=== PATIENT | female | born 1955 | race African-American/Black ===

== ENCOUNTER 2017-08-10 10:10 | Outpatient (CLI) | payer OTHER ==
--- NOTE | 2017-08-10 13:29 | RAD ---
CHEST PA AND LATERAL: Date: 08/10/17 HISTORY: 62-year-old female with history of dyspnea. COMPARISON: 06/09/16. FINDINGS: Minimal cardiomegaly. Linear increased markings are noted in the left mid lung zone and right lower lung zone, which appears stable and chronic. No confluent pneumonia, overt edema, or pleural effusio n. IMPRESSION: Chronic lung changes bilaterally, stable. Stable cardiomegaly. No significant new process. POS: OFF
== END 2017-08-10 10:11 | disposition home or self-care (01) ==
LOC: RAD 10:10
PROVIDERS: ATTEND Internal Medicine Critical Care Medicine
DX: R06.00 Dyspnea, unspecified (principal); I51.7 Cardiomegaly
CPT/HCPCS: 71020

== ENCOUNTER 2018-01-02 22:17 | Emergency (ER) | payer OTHER ==
[2018-01-03] MEDS ORDERED: HYDROcodone/Acetaminophen 5/325 mg Tablet ONE (01:59)
--- NOTE | 2018-01-03 09:04 | RAD ---
FRONTAL CHEST WITH 2 VIEWS RIGHT RIBS: Date: 01/03/18 PROVIDED CLINICAL HISTORY: Chest pain status post injury. FINDINGS: Comparison made with chest radiographs performed 08/10/17. The cardiac silhouette remains enlarged, further magnified by supine portable technique. Patient body habitus limits evaluation. No focal consolidation evident. Evaluation for pleural fluid and pneumoth orax is limited due to the supine nature of the study. No evidence for a displaced right-sided rib fr acture. IMPRESSION: No evidence for an acute process with limitations as above. POS: SHAHRAM
== END 2018-01-03 04:30 | disposition home or self-care (01) ==
LOC: ERS 22:17
DX: S22.31XA Fracture of one rib, right side, initial encounter for closed fracture (principal); J45.909 Unspecified asthma, uncomplicated; V00.831A Fall from motorized mobility scooter, initial encounter
CPT/HCPCS: 94640; J7620

== ENCOUNTER 2018-02-24 13:02 | Outpatient (CLI) | payer OTHER ==
--- NOTE | 2018-02-24 14:59 | RAD ---
TWO VIEWS CHEST: COMPARISON: 08/10/17, 01/03/18. HISTORY: Dyspnea. FINDINGS: Atherosclerosis of the aorta. Heart is enlarged. Pulmonary vessels are prominent.. Patchy intersti tial opacities which are similar to the previous examination suggesting chronic change. Acute infilt rate is not appreciated. There is no pneumothorax or osseous abnormality. IMPRESSION: 1. Chronic change of lung parenchyma. No acute cardiopulmonary process. 2. Cardiomegaly without evidence of failure. POS: [facility]
== END 2018-02-24 13:03 | disposition home or self-care (01) ==
LOC: RAD 13:02
PROVIDERS: ATTEND Internal Medicine Critical Care Medicine
DX: R06.00 Dyspnea, unspecified (principal)
CPT/HCPCS: 71046

== ENCOUNTER 2018-03-18 07:33 | Emergency (ER) | payer OTHER ==
--- NOTE | 2018-03-18 09:20 | RAD ---
RIGHT ELBOW TWO VIEWS: History: Fall, right elbow injury. FINDINGS: Radiocapitellar alignment is maintained. No displaced fracture or fluid distention of the joint capsu le is apparent. Exam is limited due to persistent extension of the elbow and only two views. IMPRESSION: No significant abnormalities are demonstrated. POS: [facility]
--- NOTE | 2018-03-18 09:21 | RAD ---
RIGHT HUMERUS TWO VIEWS: History: Fall. Right arm injury. FINDINGS: Humerus is intact. Degenerative changes of the shoulder. No displaced fractures are evident. IMPRESSION: No acute osseous abnormalities are demonstrated. POS: [facility]
== END 2018-03-18 09:38 | disposition home or self-care (01) ==
LOC: ERS 07:33
DX: S50.02XA Contusion of left elbow, initial encounter (principal); J45.909 Unspecified asthma, uncomplicated; W19.XXXA Unspecified fall, initial encounter
CPT/HCPCS: 94640; J7620

== ENCOUNTER 2018-04-30 11:03 | Outpatient (CLI) | payer OTHER ==
--- NOTE | 2018-04-30 11:36 | RAD ---
CHEST TWO VIEWS: History: Dyspnea. Comparison: 04-08-18 FINDINGS: Cardiac silhouette remains enlarged. Pulmonary vasculature is slightly more engorged with bilateral p erihilar infiltrates and reticular nodular interstitial prominence. Mediastinum is midline. No lobar consolidation, pneumothorax, or pleural fluid. IMPRESSION: Cardiomegaly. Mild pulmonary vascular congestion. Stable radiographic appearance of the chest. POS: [facility]
== END 2018-04-30 11:04 | disposition home or self-care (01) ==
LOC: RAD 11:03
PROVIDERS: ATTEND Internal Medicine Critical Care Medicine
DX: R06.00 Dyspnea, unspecified (principal); I51.7 Cardiomegaly; R09.89 Other specified symptoms and signs involving the circulatory and respiratory systems
CPT/HCPCS: 71046

== ENCOUNTER 2018-06-30 14:33 | Inpatient (IN) | payer OTHER ==
[2018-06-30] MEDS ORDERED: Benzonatate 100 MG CAP PO PRN (15:05)
[2018-06-30 16:41] LABS: Hemoglobin 12.8 g/dL (12.0-16.0); Mean Corpuscular HGB CONC 31.4 g/dL (32.0-36.0); Mean Corpuscular Hemoglobin 30.9 pg (27.0-31.0); Mean Corpuscular Volume 98.3 fL (78.0-98.0); Mean Platelet Volume 9.7 fL (7.4-10.4); Platelet Count 138 thou/uL (130-400); RBC Distribution Width 12.6 % (11.5-14.5); Red Blood Cell (RBC) Count 4.14 mill/uL (4.20-5.40); White Blood Cell (WBC) Count 5.7 thou/uL (4.8-10.8)
[2018-06-30 16:55] LABS: Lymphocytes 9 % (21-51); MDiff Complete? YES; Monocytes 3 % (0-10); Neutrophil 88 % (42-75); PLT Morphology Comment Appears Adequate; RBC Morphology Normal
[2018-06-30 17:40] LABS: ALT (SGPT) 24 U/L (8-55); AST (SGOT) 19 U/L (5-34); Albumin 4.3 g/dL (3.4-4.8); Alkaline Phosphatase 95 U/L (40-150); Anion Gap 15 mmol/L (10-20); BUN (Urea Nitrogen) 13 mg/dL (9.8-20.1); Bilirubin, Total 0.9 mg/dL (0.2-1.2); Calc. Creatinine Clearance 131 mL/min (70-130); Calcium 8.2 mg/dL (7.8-10.44); Carbon Dioxide 36 mmol/L (23-31); Chloride 95 mmol/L (98-107); Estimated GFR-MDRD 60; Globulin 2.6 g/dL (2.4-3.5); Glucose 151 mg/dL (80-115); Potassium 3.3 mmol/L (3.5-5.1); Protein, Total 6.9 g/dL (6.0-8.3); Sodium 143 mmol/L (136-145)
[2018-06-30] MEDS: Amitriptyline HCl 100 MG TAB PO SCH (20:41)
[2018-06-30] MEDS: Doxycycline 100 MG CAP PO SCH (20:42)
[2018-06-30] MEDS: guaiFENesin ER 600 MG TAB PO SCH (20:42)
[2018-07-01] MEDS: Amitriptyline HCl 100 MG TAB PO SCH ×2 (08:27→19:43)
[2018-07-01] MEDS: Doxycycline 100 MG CAP PO SCH ×2 (08:27→19:44)
[2018-07-01] MEDS: guaiFENesin ER 600 MG TAB PO SCH ×2 (08:28→19:43)
[2018-07-01] MEDS: Furosemide 40 MG TAB PO SCH (08:28)
[2018-07-01] MEDS: Potassium Chloride 20 MEQ TAB PO SCH (08:28)
[2018-07-01 13:03] VITALS: BMI 58.3
[2018-07-01] MEDS ORDERED: Buprenorphine 8mg/Naloxone 2mg per 1 FILM SL PRN (15:58)
[2018-07-01] MEDS ORDERED: Furosemide 40 MG/4 ML VIAL SLOW IVP SCH (16:00)
--- NOTE | 2018-07-01 16:08 | PRG ---
DATE OF SERVICE: 07/01/2018 SUBJECTIVE: Rebeca Pretty says she is feeling better. She has not got out of bed. We need to get physical therapy moving around. PHYSICAL EXAMINATION: LUNGS: Remarkable for improved wheezes bilaterally. GENERAL APPEARANCE: She is in no distress and talking in longer sentences today. HEART: Regular rhythm. ABDOMEN: Soft. She is requesting her p.r.n. pain medicines. Her vital signs are stable. We will continue with current care and add in physical therapy in a skil led nursing evaluation.
[2018-07-01] MEDS: NALOXONE SL PRN (19:44)
[2018-07-01] MEDS: BUPRENORPHINE SL PRN (19:44)
--- NOTE | 2018-07-01 21:29 | HP ---
DATE OF SERVICE: 07/01/2018 HISTORY OF PRESENT ILLNESS: Rebeca Pretty presented to the office. She was seen last week for asthma and showed up today. The day of admission in the office saying that she needed to be in the hospital. She has a long history of asthma. She has a long history of obesity with deconditioning and is recently for the last few years, been getting around in a scooter. She had mastectomies for weight reduction, which helped considerably with her dyspnea on exertion, but she never has been successful at losing weight. She is 5 feet 6 inches, 361 pounds. She was being admitted for further care of her asthma. PAST MEDICAL HISTORY: 1. Remarkable for chronic asthma. 2. Diastolic heart failure, which is almost always been compensated. 3. Lower extremity edema, predominantly secondary to venous insufficiency in her obesity. 4. History of negative sleep study in the past. 5. History of carpal tunnel repairs. 6. History of herniorrhaphy and appendectomy. 7. History of a . She has never smoked, nondrinker, never uses drugs. ALLERGIES: She has no drug allergies. SOCIAL HISTORY: She is a retired teacher for [employer]. FAMILY HISTORY: Negative for lung disease in early age. REVIEW OF SYSTEMS: Ten-point review of systems is otherwise negative. PHYSICAL EXAMINATION: VITAL SIGNS: Blood pressure 120/80 in the office, heart rate 60, respiratory rate 16, oximetry is 92% on 2 liters. She is afebrile. HEENT: Pupils are equal. Sclerae are anicteric. NECK: Supple. LUNGS: Remarkable for very prolonged expiratory phase. She speaks in short sentences. HEART: Regular rate and rhythm. S1 and S2 are normal. ABDOMEN: Soft and nontender. EXTREMITIES: No clubbing, cyanosis, or edema. IMPRESSION: Asthma exacerbation refractory to outpatient therapy, increased her steroids last week and increased frequency of nebulizer treatments. She has failed to improve, so she will be admitted to the hospital. We will continue with home medications include ibuprofen. We will hold her triamterene/ hydrochlorothiazide, we will continue with her Elavil 100 mg twice a day, Soma 350 mg t.i.d. p.r.n., Tessalon Perles for cough, buprenorphine and naloxone 2 mg /0.5 mg every 12 hours p.r.n. pain, Symbicort will be held. She will continue nebulized treatments every 4 hours. She will take Lasix by mouth. I will hold off on giving her IV Lasix for the first day and continue with potassium replacement. She will receive IV steroids instead of prednisone and Mucinex. Hopefully, we will see some improvement in 3-4 days. Deconditioning is the biggest problem and I have asked her to consider placement in a skilled unit for a while for physical therapy. She says she is willing to consider this. JOSSY
[2018-07-02] MEDS: Doxycycline 100 MG CAP PO SCH ×2 (08:38→20:41)
[2018-07-02] MEDS: Amitriptyline HCl 100 MG TAB PO SCH ×2 (08:39→20:41)
[2018-07-02] MEDS: Potassium Chloride 20 MEQ TAB PO SCH (08:39)
[2018-07-02] MEDS: Furosemide 40 MG TAB PO SCH (08:39)
[2018-07-02] MEDS: guaiFENesin ER 600 MG TAB PO SCH ×2 (08:39→20:41)
[2018-07-02] MEDS: BUPRENORPHINE SL PRN ×2 (10:54→22:37)
[2018-07-02] MEDS: NALOXONE SL PRN ×2 (10:54→22:37)
[2018-07-02] MEDS ORDERED: Furosemide 40 MG/4 ML VIAL IVP ONE (12:28)
[2018-07-02] MEDS ORDERED: Potassium Chloride 20 MEQ TAB PO SCH (12:30)
--- NOTE | 2018-07-02 12:44 | PRG ---
DATE OF SERVICE: 07/02/2018 Ms. Pretty says she is feeling better. PHYSICAL EXAMINATION: VITAL SIGNS: She is afebrile, heart rate 70, respiratory rate 16, oximetry is 97, blood pressure 116 /67. Intake and output is negative 2570. LUNGS: Clear. CARDIOVASCULAR: Regular rhythm. ABDOMEN: Soft. IMPRESSION: 1. Status asthmaticus. 2. Stable diastolic heart failure. 3. Lower extremity edema secondary to her sedentary lifestyle venous compression and her massive obe sity. PLAN: Continue intermittent diuresis. Probably check lab again on Thursday. Continue with her asthma treatments and her steroids.
[2018-07-02] MEDS ORDERED: Furosemide 100 MG/10 ML VIAL SLOW IVP SCH (13:00)
--- NOTE | 2018-07-02 15:38 | PQF ---
CLINICAL DOCUMENTATION IMPROVEMENT CLARIFICATION FORM: ICD-10 Updated PLEASE DO AN ADDENDUM TO THE PROGRESS NOTE WITH ANY DOCUMENTATION UPDATES OR ADDITIONS AND CARRY THROUGH TO DC SUMMARY. THANK YOU. DATE: 07/02/18; 07/05/18; 07/07/18 ATTN: Dr. Vivas Please exercise your independent, professional judgment in responding to the clarification form. Clinical indicators are provided on the bottom of this form for your review Please check appropriate box(s): [ ] Acute Respiratory Failure: [ ] with Hypoxia [ ] with Hypercapnia [ ] Acute On Chronic Respiratory Failure: [ ] with Hypoxia [ ] with Hypercapnia [ ] Acute Respiratory Failure due to: [ ] Chronic Respiratory Failure only [ ] with Hypoxia [ ] with Hypercapnia [ ] Other diagnosis [ ] Unable to determine In addition, please specify: Present on Admission (POA): [ ] Yes [ ] No [ ] Unable to determine For continuity of documentation, please document condition throughout progress notes and discharge summary. Thank You. CLINICAL INDICATORS - SIGNS / SYMPTOMS / LABS H&P 06/30: BP 120/80, HR 60, RESP 16, OXIMETRY IS 92% ON 2 LITERS LUNGS: REMARKABLE FOR VERY PROLONGED EXPIRATORY PHASE. SHE SPEAKS IN SHORT SENTENCES NURSING VS 06/30: RESP 24, O2 SAT 84 ROOM AIR RISKS: H&P 06/30: HISTORY OF OBESITY WITH DECONDITIONING. DIASTOLIC HEART FAILURE. ASTHMA EXACERBATION REFRACTORY TO OUTPATIENT THERAPY. TREATMENT: ORDER 06/30: RESP: O2 TO KEEP SATS 92% CPOE 06/30: SOLU-MEDROL 20 MG IV Q 6 HRS CPOE 06/30: DUONEB Q 4HR Thank you, Rachel (This form is maintained as a part of the permanent medical record) 2014 [employer]. All Rights Reserved Rachel Paul RN, BSN [email or web address] Office: [phone] [facility]
[2018-07-03] MEDS: guaiFENesin ER 600 MG TAB PO SCH ×2 (08:04→20:06)
[2018-07-03] MEDS: Furosemide 40 MG TAB PO SCH (08:04)
[2018-07-03] MEDS: Amitriptyline HCl 100 MG TAB PO SCH ×2 (08:04→20:06)
[2018-07-03] MEDS: Doxycycline 100 MG CAP PO SCH ×2 (08:04→20:06)
[2018-07-03] MEDS: Potassium Chloride 20 MEQ TAB PO SCH (08:04)
--- NOTE | 2018-07-03 11:24 | PRG ---
DATE OF SERVICE: 07/03/2018 SUBJECTIVE: The patient states that she is breathing better. She had no acute complaints. PHYSICAL EXAMINATION: VITAL SIGNS: Temperature 97.1, pulse 71, respiration 20, O2 sat 100% on 2 liters nasal cannula, bloo d pressure 145/87. HEENT: Unremarkable. NECK: No JVD. CHEST: Distant, but clear breath sounds. CARDIOVASCULAR: S1, S2 regular. ABDOMEN: Soft. EXTREMITIES: No edema. ASSESSMENT: 1. Status asthmaticus, which is improved. 2. Stable diastolic cardiac dysfunction. PLAN: The patient is continuing her diuretics. She is also continuing low dose steroids and her neb ulization treatments. The goal would be for her to go home by Thursday.
[2018-07-03] MEDS: NALOXONE SL PRN (13:03)
[2018-07-03] MEDS: BUPRENORPHINE SL PRN (13:03)
[2018-07-04] MEDS: BUPRENORPHINE SL PRN ×3 (00:06→23:41)
[2018-07-04] MEDS: NALOXONE SL PRN ×3 (00:06→23:41)
[2018-07-04 07:33] LABS: Anion Gap 17 mmol/L (10-20); BUN (Urea Nitrogen) 22 mg/dL (9.8-20.1); Calc. Creatinine Clearance 166 mL/min (70-130); Calcium 8.6 mg/dL (7.8-10.44); Carbon Dioxide 36 mmol/L (23-31); Chloride 93 mmol/L (98-107); Estimated GFR-MDRD 76; Glucose 128 mg/dL (80-115); Potassium 3.6 mmol/L (3.5-5.1); Sodium 142 mmol/L (136-145)
[2018-07-04] MEDS: Potassium Chloride 20 MEQ TAB PO SCH (08:18)
[2018-07-04] MEDS: Doxycycline 100 MG CAP PO SCH ×2 (08:18→20:24)
[2018-07-04] MEDS: guaiFENesin ER 600 MG TAB PO SCH ×2 (08:19→20:24)
[2018-07-04] MEDS: Furosemide 40 MG TAB PO SCH (08:19)
[2018-07-04] MEDS: Amitriptyline HCl 100 MG TAB PO SCH ×2 (08:19→20:24)
--- NOTE | 2018-07-04 11:49 | PRG ---
DATE OF SERVICE: 07/04/2018 SUBJECTIVE: She is complaining that her right flank more swollen compared to her left. Her breathin g is about the same. OBJECTIVE: VITAL SIGNS: Temperature 98.4, pulse 60, respirations 20, O2 saturation 94% on 2 liters, blood press ure 107/71. HEENT: Unremarkable. NECK: No JVD. LUNGS: Clear. CARDIAC: S1 and S2 regular. ABDOMEN: Swollen. Skin fold on the right. This is not from Lovenox administration, rather this is from edema. EXTREMITIES: Edematous throughout. LABORATORY DATA: Sodium 140, potassium 3.6, chloride 93, CO2 36, BUN 22, creatinine 0.9, glucose 128 . ASSESSMENT: 1. Morbid obesity. 2. Status asthmaticus, which is improved. 3. Diastolic cardiac dysfunction. PLAN: The patient is requesting one dose of IV Lasix that will be given later this afternoon. She s hould be stable for discharge by tomorrow, Thursday.
[2018-07-04] MEDS: Furosemide 40 MG/4 ML VIAL SLOW IVP SCH (14:47)
[2018-07-05] MEDS: Doxycycline 100 MG CAP PO SCH ×2 (09:25→20:11)
[2018-07-05] MEDS: guaiFENesin ER 600 MG TAB PO SCH ×2 (09:25→20:11)
[2018-07-05] MEDS: Potassium Chloride 20 MEQ TAB PO SCH (09:26)
[2018-07-05] MEDS: Furosemide 40 MG TAB PO SCH (09:26)
[2018-07-05] MEDS: Amitriptyline HCl 100 MG TAB PO SCH ×2 (09:26→20:11)
[2018-07-05] MEDS: Furosemide 40 MG/4 ML VIAL SLOW IVP SCH (15:39)
--- NOTE | 2018-07-05 17:35 | PRG ---
DATE OF SERVICE: 07/05/2018 SUBJECTIVE: Rebeca Pretty says she is feeling better. She does not want to go into skilled for physi bubba therapy. She previously agreed to do that. This may have something to do with the fact that her son had another baby and she wants to get home and see the baby. OBJECTIVE: VITAL SIGNS: She is afebrile, heart rate 78, respiratory rate 18, oximetry is 95 on 2 liters, blood pressure 154/77. LUNGS: Clear. HEART: Regular rhythm. ABDOMEN: Soft and nontender. EXTREMITIES: Without clubbing, cyanosis, or edema. IMPRESSION: Status asthmaticus, clinically improved. Hopefully, we can discharge her tomorrow.
[2018-07-05] MEDS: NALOXONE SL PRN (22:29)
[2018-07-05] MEDS: BUPRENORPHINE SL PRN (22:29)
[2018-07-06] MEDS: guaiFENesin ER 600 MG TAB PO SCH ×2 (08:44→20:20)
[2018-07-06] MEDS: Doxycycline 100 MG CAP PO SCH ×2 (08:44→20:21)
[2018-07-06] MEDS: Amitriptyline HCl 100 MG TAB PO SCH ×2 (08:44→20:21)
[2018-07-06] MEDS: Potassium Chloride 20 MEQ TAB PO SCH (08:45)
[2018-07-06] MEDS: Furosemide 40 MG TAB PO SCH (08:45)
[2018-07-06] MEDS: Furosemide 40 MG/4 ML VIAL SLOW IVP SCH (15:02)
[2018-07-06 17:14] LABS: A/G Ratio 1.4 (0.7-1.7); Alpha 1 0.3 g/dL (0.0-0.4); Alpha 2 0.8 g/dL (0.4-1.0); Gamma 0.7 g/dL (0.4-1.8); Globulin, Total 2.8 g/dL (2.2-3.9); M-Spike Not Observed g/dL (Not Observed)
--- NOTE | 2018-07-06 17:55 | PRG ---
DATE OF SERVICE: 07/06/2018 Sukhwinder was tentatively scheduled for discharge today and then told me she go to rehab. I have had e floor helper evaluate her for placement in a skilled facility or rehabilitation facility and she deci ded she does not want to go this is financial issues. PHYSICAL EXAMINATION: VITAL SIGNS: She is afebrile, heart rate 76, respiratory rate 18, oximetry is 93%, blood pressure 14 9/81. LUNGS: Clear. HEART: Regular rhythm. ABDOMEN: Soft. IMPRESSION: 1. Status asthmaticus, clinically improved. 2. Obesity with deconditioning. 3. Lower extremity edema, predominantly secondary to obesity. We will reevaluate her in the morning for discharge. Hopefully, she will continue to improve. I hav e explained to her that her inactivity since she retired is her biggest enemy. 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 Since she has retired, she will quickly admit that she is just sitting all the time on her laptop or talking on her phone. I truly believe that deconditioning is a bigger factor than asthma.
[2018-07-06] MEDS: BUPRENORPHINE SL PRN (21:29)
[2018-07-06] MEDS: NALOXONE SL PRN (21:29)
[2018-07-07] MEDS ORDERED: predniSONE 20 MG TAB PO SCH (08:00)
[2018-07-07] MEDS: guaiFENesin ER 600 MG TAB PO SCH (08:15)
[2018-07-07] MEDS: Potassium Chloride 20 MEQ TAB PO SCH (08:15)
[2018-07-07] MEDS: Furosemide 40 MG TAB PO SCH (08:15)
[2018-07-07] MEDS: Amitriptyline HCl 100 MG TAB PO SCH (08:16)
[2018-07-07] MEDS: Doxycycline 100 MG CAP PO SCH (08:16)
[2018-07-07 08:25] VITALS: BP 145/75; TEMP 97.9
[2018-07-07] MEDS: BUPRENORPHINE SL PRN (10:40)
[2018-07-07] MEDS: NALOXONE SL PRN (10:40)
[2018-07-07] MEDS: Furosemide 40 MG/4 ML VIAL SLOW IVP SCH (16:43)
--- NOTE | 2018-07-08 01:42 | DIS ---
DISCHARGE DIAGNOSES: 1. Status asthmaticus. 2. Morbid obesity. 3. Status post breast reduction for weight loss. 4. 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 5. Acute on chronic respiratory failure with hypoxia. 6. Suspected sleep apnea. She has had a sleep study in the past that was negative, but when I round ed on her today, I did notice an apneic spell, try to get her to agree with a sleep study at a later date. Please see history and physical for details. Briefly, she presented to the office after failing outpatient management of her asthma. Deconditioni ng is a bigger factor than her asthma, but she was unable to speak in complete sentences when she arr ived to my office, so she subsequently was admitted. She is back near her baseline now. I suggested inpatient rehabilitation. She initially consented, then declined and consented and then declined ranta carlin, says she wants to go home. She will be discharged home on 40 of prednisone. She will take that until the end of the weekend and then go to 20 mg a day and is down to 20 mg a day until she sees me in 2 weeks. Other discharge medications will include Elavil 100 mg twice a day, Soma 350 t.i.d. p.r.n., I believe she has had an adequate course of antibiotics in the hospital, Lasix 40 mg a day p.o., guaifenesin 1200 mg twice a day, ipratropium and albuterol nebulized treatments every 4 hours, potassium 20 mEq a day with her Lasix. She will continue with her home pain meds. see her back in follow up in 2 week s. Her lungs are clear today on exam.
== END 2018-07-07 19:07 | disposition home or self-care (01) | DRG 202 ==
LOC: T4-A 14:33
PROVIDERS: ADMIT Internal Medicine Critical Care Medicine; ATTEND Internal Medicine Critical Care Medicine
DX: J45.902 Unspecified asthma with status asthmaticus (principal); J96.21 Acute and chronic respiratory failure with hypoxia; Z68.43 Body mass index [BMI] 50.0-59.9, adult; I50.32 Chronic diastolic (congestive) heart failure; E66.01 Morbid (severe) obesity due to excess calories
CPT/HCPCS: 36415; 80048; 80053; 83880; 84165; 85025; 85652; 94640; A4216; G8978-GP-CL; G8979-GP-CK; J1940; J2920; J7506; J7620

== ENCOUNTER 2018-08-02 13:26 | Outpatient (CLI) | payer OTHER ==
--- NOTE | 2018-08-02 15:11 | NM ---
NUCLEAR MEDICINE VQ SCAN: INDICATION: Pulmonary embolism without acute cor pulmonale. FINDINGS: The ventilation portion of the exam reveals homogeneous distribution with mild retention. Evaluation of the perfusion imaging reveals a mild, generalized heterogeneity without evidence of a moderate or large perfusion defect. IMPRESSION: 1. Low probability VQ scan for pulmonary embolus. 2. Mild retention of radiotracer which may relate to chronic obstructive pulmonary disease. Correla te clinically. POS: SHAHRAM
--- NOTE | 2018-08-02 15:12 | RAD ---
2 VIEW CHEST: Date: 08/02/18 COMPARISON: 04/30/18. INDICATION: Pulmonary embolism without cor pulmonale. Reference made to 04/30/18. FINDINGS: There remains prominence of the cardiac silhouette, with bilateral perihilar linear densities, again demonstrated. There is interstitial prominence of each lung. Prominence of the central pulmonary vasc ulature present. Chest is otherwise similar. IMPRESSION: 1. CHF. 2. Bilateral, persistent subsegmental atelectasis. There is a superimposed area of more confluent op acification of the lateral right lung base which could relate to an area of developing rounded atelec tasis versus pneumonia. Radiographic follow-up to resolution is recommended. CODE T. POS: SHAHRAM
== END 2018-08-02 13:27 | disposition home or self-care (01) ==
LOC: NM 13:26
PROVIDERS: ATTEND Internal Medicine Critical Care Medicine
DX: I26.99 Other pulmonary embolism without acute cor pulmonale (principal); I50.9 Heart failure, unspecified; J98.11 Atelectasis; R91.8 Other nonspecific abnormal finding of lung field
CPT/HCPCS: 71046; 78582; A9540; A9558

== ENCOUNTER 2019-10-20 21:31 | Inpatient (IN) | payer OTHER ==
[2019-10-20 22:14] LABS: Base Excess-Venous 11.9 mmol/L (-2.0 to 3.0); Bicarbonate (HCO3v) 42.3 mmol/L (22.0-28.0); CO2 Tension (PvCO2) 82.3 mmHg (40.0-50.0); Calcium, Ionized 1.16 mmol/L (See Comments:); Chloride 95 mmol/L (98-107); Hemoglobin - Calc 15.3 g/dL (12.0-16.0); Potassium 3.8 mmol/L (3.5-5.1); Sodium 143 mmol/L (138-145); T. Carbon Dioxide 44.8 mmol/L (22.0-28.0); vO2 Saturation-calc 26.9 % (60.0-85.0)
[2019-10-20 22:20] LABS: Hemoglobin 13.1 g/dL (12.0-16.0); Mean Corpuscular HGB CONC 32.2 g/dL (32.0-36.0); Mean Corpuscular Hemoglobin 30.8 pg (27.0-31.0); Mean Corpuscular Volume 95.7 fL (78.0-98.0); Mean Platelet Volume 8.9 fL (7.4-10.4); Platelet Count 146 thou/uL (130-400); RBC Distribution Width 11.6 % (11.5-14.5); Red Blood Cell (RBC) Count 4.25 mill/uL (4.20-5.40); White Blood Cell (WBC) Count 20.7 thou/uL (4.8-10.8)
[2019-10-20] MEDS ORDERED: Furosemide 40 MG/4 ML VIAL ONE (22:32)
[2019-10-20 22:38] LABS: Band 8 % (5-11); Lymphocytes 5 % (21-51); MDiff Complete? YES; Monocytes 4 % (0-10); Neutrophil 83 % (42-75); Platelet Morphology Comment Appears Adequate; RBC Morphology Normal
[2019-10-20] MEDS ORDERED: Albuterol Sulfate 2.5 mg/3 ml Neb ONE (22:41)
[2019-10-20 22:43] LABS: ALT (SGPT) 14 U/L (8-55); AST (SGOT) 24 U/L (5-34); Albumin 3.9 g/dL (3.4-4.8); Alkaline Phosphatase 82 U/L (40-110); Anion Gap 18 mmol/L (10-20); BUN (Urea Nitrogen) 20 mg/dL (9.8-20.1); Bilirubin, Total 1.2 mg/dL (0.2-1.2); Calc. Creatinine Clearance 0 mL/min (70-130); Carbon Dioxide 32 mmol/L (23-31); Chloride 95 mmol/L (98-107); Estimated GFR-MDRD 58; Glucose 114 mg/dL (80-115); Potassium 4.1 mmol/L (3.5-5.1); Protein, Total 6.9 g/dL (6.0-8.3); Sodium 141 mmol/L (136-145)
[2019-10-20 23:06] LABS: CKMB 3.9 ng/mL (0-6.6)
--- NOTE | 2019-10-20 23:20 | RAD ---
PORTABLE AP CHEST X-RAY 10/20/19 HISTORY: Cough, lethargy. COMPARISON: 08/02/18. FINDINGS: There is parenchymal opacity and consolidation at the right lung base as well as increased density an d air space opacities at the left lung base. Findings are worrisome for bibasilar pneumonia. The card iac borders are obscured due to the bibasilar opacities. Probable associated pleural effusion on the right. Vascular calcifications seen in the thoracic aorta. There is osteopenia. IMPRESSION: Bibasilar parenchymal opacities, worrisome for bibasilar pneumonia. Atypical pneumonia is a possibili ty. There is also probable small right pleural effusion. Follow-up to complete resolution is recommen ded. POS: SHAHRAM
[2019-10-21 00:17] LABS: Base Excess-Venous 7.5 mmol/L (-2.0 to 3.0); Bicarbonate (HCO3v) 37.3 mmol/L (22.0-28.0); CO2 Tension (PvCO2) 77.9 mmHg (40.0-50.0); Calcium, Ionized 1.08 mmol/L (See Comments:); Chloride 96 mmol/L (98-107); Hemoglobin - Calc 14.2 g/dL (12.0-16.0); Sodium 140 mmol/L (138-145); T. Carbon Dioxide 39.7 mmol/L (22.0-28.0); vO2 Saturation-calc 30.2 % (60.0-85.0)
[2019-10-21 00:34] LABS: Actual Bicarbonate (HCO3a) 32.3 mEq/L (22-28); Analyzer IN Cardio ER; CO2 Tension 53.9 mmHg (35.0-45.0); Carboxyhemoglobin (COHb) 1.2 gm% (0.0-3.0); Hemoglobin (Hb) 13.3 g/dL (12.0-16.0); O2 Tension (PaO2) 69.4 mmHg (> 80.0); Potassium - ABG Lab 3.52 mmol/L (3.70-5.30)
[2019-10-21 00:35] LABS: ALV-art Gradient 219.725 (0-20); Puncture Site LRA
[2019-10-21] MEDS ORDERED: Aspirin Chewable 81 MG TAB ONE ×2 (00:55→00:59)
--- NOTE | 2019-10-21 01:05 | PDOC.HHP ---
Hospitalist HPI - History of Present Illness somnolence, shortness of breath History of Present Illness: This is a 64 year old female who was brought in by family due to somnolence. The patient was noted to have an oxygen saturation of 70% and was placed on BIPAP 12/6. Her initial CO2 was 82.3 THe patient was then more arousable but not very verbal initially but after an hour I was able to obtain further history. The patient states that she has been feeling short of breath for the past few weeks. SHe says her short of breath was on exertion and has gotten progressive. The patient states she can't walk very far before she has to stop. SHe sometimes has shortness of breath while laying down but not always. She also has been having a fever of 101.5 for the past few weeks, pain in her left rib which is worst with inspiration and a productive cough for the past few weeks. Her PCP gave her azithromycin x 2 with no improvement. THe patient denies weight gain, states she has been taking lasix daily and has not increased her salt intake. She has chronic lower extremity edema, but it has not gotten worst. She says her urine output has been diminished as of late. ED Course: In the ED, labs were remarkable for WBC of 20.7, lactate of 2.4. EKG showed sinus tachycardia with T wave inversions in V2, troponin was 0.05. Chest X ray shows bibasilar pneumonia and possible small right pleural effusion. The patient received IV levaquin, and 40 mg IV lasix. She feels her breathing has improved some, but she is thirsty Hospitalist ROS - Review of Systems ROS unobtainable: due to mental status Constitutional: reports: fever. denies: chills Eyes: denies: pain, vision change Respiratory: reports: cough, shortness of breath, SOB with excertion. denies: hemoptysis Cardiovascular: denies: chest pain Gastrointestinal: denies: nausea, vomiting, abdominal pain, diarrhea, constipation Genitourinary: denies: dysuria, frequency, incontinence Musculoskeletal: denies: neck pain, shoulder pain Skin: denies: rash, lesions Neurological: denies: weakness, numbness Hospitalist History - Past Medical History Cardiac: reports: CHF (diastolic) Pulmonary: reports: asthma JOB HAND: reports: Carpal Tunnel Syndrome - Past Surgical History Other Surgical History: Carpal tunnel repairs Appendectomy C section Herniorrhaphy - Family History Other Family History: Unable to obtain - Social History Smoking Status: Never smoker Drugs: reports: none Other Social History: The patient is a . SHe lives alone. - Exam General Appearance: ill appearing General - other findings: on BIPAP, opens eyes to name but cannot respond much Eye: PERRL, anicteric sclera ENT: normocephalic atraumatic, no oropharyngeal lesions Neck: supple, symmetric, no JVD, no thyromegaly Heart: RRR, no murmur, no gallops, no rubs Respiratory: CTAB, no wheezes, no ronchi Respiratory - other findings: mild crackles bilaterally Gastrointestinal: soft, non-tender, non-distended, normal bowel sounds Gastrointestinal - other findings: obese, mild distension Extremities: no cyanosis, no clubbing, 1+ LE edema Extremities - other findings: mild tenderness in lower extremities Skin: normal turgor, no lesions, no rashes Neurological: no new deficit Psychiatric: normal affect, normal behavior, A&O x 3 Hospitalist Results - Labs Result Diagrams: 10/20/19 22:16 10/20/19 22:16 Lab results: WBC 20.7 thou/uL (4.8-10.8) H 10/20/19 22:16 Hgb 13.1 g/dL (12.0-16.0) 10/20/19 22:16 Hct 40.7 % (36.0-47.0) 10/20/19 22:16 MCV 95.7 fL (78.0-98.0) 10/20/19 22:16 Plt Count 146 thou/uL (130-400) 10/20/19 22:16 Band Neuts % (Manual) 8 % (5-11) 10/20/19 22:16 ABG pH 7.40 (7.35-7.45) 10/21/19 00:27 ABG pCO2 53.9 mmHg (35.0-45.0) H 10/21/19 00:27 ABG pO2 69.4 mmHg (> 80.0) 10/21/19 00:27 VBG pCO2 77.9 mmHg (40.0-50.0) H* 10/21/19 00:06 VBG pO2 22.7 mmHg (35.0-45.0) L 10/21/19 00:06 Sodium 141 mmol/L (136-145) 10/20/19 22:16 Potassium 4.1 mmol/L (3.5-5.1) 10/20/19 22:16 Chloride 95 mmol/L (98-107) L 10/20/19 22:16 Carbon Dioxide 32 mmol/L (23-31) H 10/20/19 22:16 BUN 20 mg/dL (9.8-20.1) 10/20/19 22:16 Creatinine 1.15 mg/dL (0.6-1.1) H 10/20/19 22:16 Glucose 114 mg/dL (80-115) 10/20/19 22:16 Lactic Acid 2.4 mmol/L (0.5-2.2) H 10/20/19 00:10 Calcium 9.0 mg/dL (7.8-10.44) 10/20/19 22:16 Total Bilirubin 1.2 mg/dL (0.2-1.2) 10/20/19 22:16 AST 24 U/L (5-34) 10/20/19 22:16 ALT 14 U/L (8-55) 10/20/19 22:16 Alkaline Phosphatase 82 U/L (40-110) 10/20/19 22:16 CK-MB (CK-2) 3.9 ng/mL (0-6.6) 10/20/19 22:16 Troponin I 0.054 ng/mL (< 0.028) H 10/20/19 22:16 B-Natriuretic Peptide 347.5 pg/mL (0-100) H 10/20/19 22:16 Serum Total Protein 6.9 g/dL (6.0-8.3) 10/20/19 22:16 Albumin 3.9 g/dL (3.4-4.8) 10/20/19 22:16 - EKG Interpretation EKG: sinus tachycardia with T wave inversion in V2, QT 473 Hospitalist H&P A/P - Plan Plan: Chest Xray: bibasilar parenchymal opacities, small right pleural effusion This is a 64 year old female with past medical history of asthma, diastolic heart failure, chronic lower extremity edema who presents with somnolence, improved with BIPAP #Acute hypoxic and hypercapneic respiratory failure secondary to pneumonia #Sepsis from pneumonia # Acute encephalopathy #Leukocytosis #Sinus tachycardia - vBG showing pH 7.2 initially with pCO2 of 80. After BIPAP, repeat ABG shows improvement with pH 7.4, PCO2 of 53, however respiratory rate was still elevated in the 20's. Chest X ray showing bibasilar pneumonia with small right pleural effusion. She is s/p IV levaquin and 40 mg IV lasix. - WBC is 20, lactate 2.7, will obtain blood cultures x 2, give 1L bolus and start IV fluids, switch to ceftriaxone and azithromycin. Repeat lactate - continue to trend troponin, check ECHO #Diastolic CHF #Moderate MR - will hold lasix for now since urine appears very dark - repeat ECHO Depression - hold amitritypline CKD stage II vs mild TALHA - creatinine 1.15, will monitor - give IV fluids Chronic back pain -continue soma DVT prophylaxis: heparin SC Code status: assume full code for now
[2019-10-21] MEDS ORDERED: Heparin 5,000 UNITS/ML VIAL SC SCH (01:30)
[2019-10-21] MEDS ORDERED: Sodium Chloride 0.9% 1,000 ML IV SCH (01:45)
[2019-10-21] MEDS ORDERED: Sodium Chloride 0.9% 500 ML IV SCH (01:49)
[2019-10-21] MEDS: Sodium Chloride 0.9% 1,000 ML IV SCH ×2 (02:03→14:05)
[2019-10-21] MEDS ORDERED: cefTRIAXone\\ROCEPHIN 1 GM VIAL ONE (02:07)
[2019-10-21] MEDS: cefTRIAXone\\ROCEPHIN 1 GM in Sodium Chloride 0.9% 100 ML IVPB SCH (02:18)
[2019-10-21] MEDS ORDERED: Azithromycin 500 MG VIAL ONE (02:51)
[2019-10-21] MEDS: Azithromycin 500 MG in Sodium Chloride 0.9% 250 ML 250 ML IVPB SCH (02:59)
[2019-10-21 03:34] LABS: Lactic Acid 1.3 mmol/L (0.5-2.2)
[2019-10-21 04:01] LABS: CKMB 6.3 ng/mL (0-6.6)
[2019-10-21 07:06] LABS: CKMB 5.6 ng/mL (0-6.6)
[2019-10-21] MEDS: Mometasone 100 MCG HFA INHALER INH SCH ×2 (08:04→19:22)
[2019-10-21 08:46] LABS: Lactic Acid 1.7 mmol/L (0.5-2.2)
[2019-10-21] MEDS ORDERED: Non-Formulary Item 1 EACH (Fluticasone/Umeclidin/Vilanter [Trelegy Ellipta 100-62.5-25] 1 IH SCH (09:00)
--- NOTE | 2019-10-21 09:19 | CT ---
CT CHEST WITHOUT CONTRAST: 10/21/2019 PROVIDED CLINICAL HISTORY: Altered mental status. Lethargy. Sepsis. Pneumonia. FINDINGS: The heart, pericardium and great vessel are suboptimally evaluated in the absence of IV contrast mate rial. Vascular calcification, including coronary calcium, is demonstrated. The heart appears enlarged . There are multifocal areas of consolidation involving the right middle lobe, the lingula and left gre ater than right lower lobes. The airway appears patent and of normal caliber. There is no pleural fluid or pneumothorax apparent. There is debris noted within the thoracic esophagus, which could reflect reflux or incomplete transit . The visualized portions of the upper abdomen demonstrate somewhat conspicuous gallbladder distention without pericholecystic inflammatory change evident. The osseous structures demonstrate no concerning lytic or blastic lesions. There is a chronic appearing burst fracture of T7. IMPRESSION: 1. Multifocal consolidation, compatible with pneumonia. 2. Atherosclerosis. 3. Debris within the thoracic esophagus, which may reflect reflux or incomplete transit. 4. Moderate gallbladder distention without overt pericholecystic inflammatory change. Consider right upper quadrant ultrasound, as indicated. POS: OFF
[2019-10-21 09:31] LABS: Hemoglobin 11.5 g/dL (12.0-16.0); Mean Corpuscular HGB CONC 32.4 g/dL (32.0-36.0); Mean Corpuscular Hemoglobin 30.9 pg (27.0-31.0); Mean Corpuscular Volume 95.3 fL (78.0-98.0); Mean Platelet Volume 8.9 fL (7.4-10.4); Platelet Count 122 thou/uL (130-400); RBC Distribution Width 11.9 % (11.5-14.5); Red Blood Cell (RBC) Count 3.73 mill/uL (4.20-5.40); White Blood Cell (WBC) Count 22.9 thou/uL (4.8-10.8)
[2019-10-21] MEDS: BUPRENORPHINE HCL SL PRN (09:32)
[2019-10-21] MEDS: NALOXONE HCL SL PRN (09:32)
[2019-10-21] MEDS: guaiFENesin ER 600 MG TAB PO SCH ×2 (09:34→20:18)
[2019-10-21] MEDS: Heparin 5,000 UNITS/ML VIAL SC SCH ×2 (09:34→15:34)
[2019-10-21 13:45] VITALS: BMI 42.0
--- NOTE | 2019-10-21 15:30 | CON ---
DATE OF CONSULTATION: 10/21/2019 This encompassed 70 minutes of time, of that time, greater than 50% was spent in direct the patient's care. HISTORY OF PRESENT ILLNESS: I have been asked to see this patient by the [facility] because she came in with increasing shortness of breath and bilateral pneumonia. The patient states the symptoms started last week. She thought she had a cold. She has been having intermittent fever up to 101.5. She has been taking prednisone at a dose of 20 mg a day. She was not taking antibiotics prior to admission. Last night, she stated in the ER was on BiPAP that was weaned off this morning. She says she feels better today. PAST MEDICAL HISTORY: 1. Asthma. 2. Congestive heart failure - diastolic. 3. Carpal tunnel syndrome. PAST SURGICAL HISTORY: 1. . 2. Herniorrhaphy. 3. Appendectomy. ALLERGIES: NONE. SOCIAL HISTORY: Nonsmoker. Does not consume alcohol. FAMILY MEDICAL HISTORY: Negative. REVIEW OF SYSTEMS: She has had intermittent fever, chills, cough, and congestion. Remainder of review of systems negative. PHYSICAL EXAMINATION: VITAL SIGNS: Temperature 99.5, pulse 92, blood pressure 107/68, and O2 saturation 94% on 3 L. GENERAL: She is awake, alert, pleasant, appears in no distress. HEENT: Pupils are reactive. Sclerae are anicteric. Oropharynx clear. NECK: No adenopathy or JVD. LUNGS: Scattered crackles, most prominent over the bases. CARDIAC: S1 and S2. Regular. ABDOMEN: Soft, obese, nontender, and nondistended. EXTREMITIES: No clubbing, cyanosis, or edema. LABORATORY DATA: Sodium 140, potassium 4, chloride 96, BUN 20, creatinine 1.1, and glucose 114. BNP 347. Troponin 0.08. PH of 7.40, pCO2 of 54, and pO2 of 69. White blood cell count 23, hematocrit 35.5, and platelet count 122. IMAGING DATA: CT was reviewed. She has bilateral infiltrates suggestive of pneumonia. ASSESSMENT: 1. Community-acquired pneumonia in a patient chronically on steroids. 2. Acute on chronic hypoxic respiratory failure. 3. Underlying asthma. 4. Underlying obstructive sleep apnea. PLAN: 1. Continue antibiotics as you are doing as the patient has responded. 2. Breathing treatments. 3. Low-flow oxygen. 4. Increase activity as tolerated. Job ID: [id number]
--- NOTE | 2019-10-21 16:50 | PDOC.HOSPP ---
- Subjective Encounter Date: 10/21/19 Encounter Time: 13:00 Subjective: breathing better, no sob, is sitting in chair in ER room 15 sees as outpt she came off cpap from 2016 after her breast reduction surgery uses home O2 on prn basis has taken flu shot for this year - Objective Vital Signs & Weight: Vital Signs (12 hours) Temp Pulse Resp BP Pulse Ox 10/21/19 16:03 89 127/75 10/21/19 15:28 92 16 10/21/19 14:43 94 L 10/21/19 13:28 99.5 F 92 24 H 107/68 94 L 10/21/19 11:30 95 24 H 93 L 10/21/19 08:05 95 20 92 L 10/21/19 08:04 95 18 92 L Weight Weight 260 lb 12.8 oz Result Diagrams: 10/21/19 09:20 10/20/19 22:16 Hospitalist ROS - Medication Medications: Active Medications Generic Name Dose Route Start Last Admin Trade Name Freq PRN Reason Stop Dose Admin Albuterol/Ipratropium 3 ml 10/21/19 07:00 10/21/19 15:28 Duoneb NEB 3 ml QID-RT KRYSTIN Administration Guaifenesin 1,200 mg 10/21/19 09:00 10/21/19 09:34 Mucinex PO 1,200 mg BID KRYSTIN Administration Heparin Sodium (Porcine) 5,000 units 10/21/19 09:00 10/21/19 15:34 Heparin SC 5,000 units TID KRYSTIN Administration Azithromycin 500 mg/ Sodium 250 mls @ 250 mls/hr 10/21/19 03:00 10/21/19 02: 59 Chloride IVPB 250 mls Q24HR KRYSTIN Administration Ceftriaxone Sodium 1 gm/ 100 mls @ 200 mls/hr 10/21/19 02:00 10/21/19 02:18 Sodium Chloride IVPB 100 mls Q24HR KRYSTIN Administration Sodium Chloride 1,000 mls @ 75 mls/hr 10/21/19 01:15 10/21/19 14:05 Normal Saline 0.9% IV 1,000 mls .[id number] KRYSTIN Administration Mometasone Furoate 1 puff 10/21/19 06:30 10/21/19 08:04 Asmanex Hfa 100 Mcg INH 1 puff BID-RT KRYSTIN Administration Buprenorphine Hcl/ 0 each 10/21/19 01:47 10/21/19 09:32 Naloxone Hcl 2-0.5 SL 1 each Mg Sl Q12HR PRN Administration Chronic Pain Sodium Chloride 10 ml 10/21/19 09:00 10/21/19 09:35 Flush - Normal Saline IVF 10 ml Q12HR KRYSTIN Administration - Exam General Appearance: awake alert Eye: PERRL, anicteric sclera ENT: no oropharyngeal lesions, moist mucosa Neck: supple, no JVD Heart: RRR, no murmur Respiratory: no wheezes, no rales, rhonchi Gastrointestinal: soft, non-tender, non-distended, normal bowel sounds Extremities: no cyanosis, no edema Neurological: cranial nerve grossly intact, no focal deficits Psychiatric: A&O x 3 Hosp A/P (1) PNA (pneumonia) Code(s): J18.9 - PNEUMONIA, UNSPECIFIED ORGANISM Status: Acute Qualifiers: Pneumonia type: due to unspecified organism (2) Acute respiratory failure with hypoxia Code(s): J96.01 - ACUTE RESPIRATORY FAILURE WITH HYPOXIA Status: Resolved (3) Obesity Code(s): E66.9 - OBESITY, UNSPECIFIED Status: Chronic Qualifiers: Obesity classification: adult class 3 (BMI >= 40) Body mass index: BMI 40.0 -44.9 (4) Sepsis Code(s): A41.9 - SEPSIS, UNSPECIFIED ORGANISM Status: Suspected Qualifiers: Sepsis type: sepsis due to unspecified organism - Plan is on ceftriaxone and zithromax, nebs give one dose 20mg prednisone today and then home dose of 5mg from am is off bipap appreciate 's help gentle iv hydration echo for lv function early mobilization to prevent deconditioning given bmi of 42 and chronic back pain
[2019-10-21] MEDS ORDERED: predniSONE 20 MG TAB PO SCH (17:00)
[2019-10-21] MEDS: Diltiazem 125 MG in Sodium Chloride 0.9% 100 ML IVPB SCH (19:46)
[2019-10-21] MEDS: Amitriptyline HCl 100 MG TAB PO SCH (20:18)
[2019-10-21] MEDS: tiZANidine HCl 4 MG TAB PO PRN (20:18)
[2019-10-21] MEDS: Enoxaparin Sodium 120 MG/0.8 ML SYRINGE SC SCH (20:22)
[2019-10-22] MEDS: cefTRIAXone\\ROCEPHIN 1 GM in Sodium Chloride 0.9% 100 ML IVPB SCH (01:20)
[2019-10-22] MEDS: Azithromycin 500 MG in Sodium Chloride 0.9% 250 ML 250 ML IVPB SCH (02:40)
[2019-10-22] MEDS: Sodium Chloride 0.9% 1,000 ML IV SCH ×2 (02:40→16:52)
[2019-10-22 05:22] LABS: #Lymphocytes 0.9 thou/uL (1.20-3.40); #Monocytes 0.5 thou/uL (0.11-0.59); #Neutrophils 12.2 thou/uL (1.40-6.50); %Eosinophils 0.1 % (0.0-10.0); %Lymphocytes 6.6 % (21.0-51.0); %Monocytes 3.8 % (0.0-10.0); %Neutrophils 89.6 % (42.0-75.0); Hemoglobin 11.5 g/dL (12.0-16.0); Mean Corpuscular Hemoglobin 31.7 pg (27.0-31.0); Mean Platelet Volume 9.1 fL (7.4-10.4); Platelet Count 121 thou/uL (130-400); RBC Distribution Width 11.8 % (11.5-14.5); Red Blood Cell (RBC) Count 3.61 mill/uL (4.20-5.40); White Blood Cell (WBC) Count 13.6 thou/uL (4.8-10.8)
[2019-10-22] MEDS: Mometasone 100 MCG HFA INHALER INH SCH ×2 (07:13→19:13)
[2019-10-22] MEDS: Diltiazem 125 MG in Sodium Chloride 0.9% 100 ML IVPB SCH (09:09)
[2019-10-22] MEDS: predniSONE 5 MG TAB PO SCH (09:59)
[2019-10-22] MEDS: guaiFENesin ER 600 MG TAB PO SCH ×2 (09:59→20:07)
[2019-10-22] MEDS: Enoxaparin Sodium 120 MG/0.8 ML SYRINGE SC SCH ×2 (10:00→20:07)
--- NOTE | 2019-10-22 12:46 | PRG ---
DATE OF SERVICE: 10/22/2019 SUBJECTIVE: She feels better. She is coughing up some purulent sputum. OBJECTIVE: VITAL SIGNS: Temperature 98.5, pulse 105, respirations 20, sat 95% on 2.5 L, and blood pressure 133/64. HEENT: Unremarkable. NECK: No adenopathy or JVD. CARDIAC: S1, S2. Irregularly irregular and tachycardic. LUNGS: Some crackles in the bases. ABDOMEN: Soft, obese, nontender. EXTREMITIES: No edema. ASSESSMENT: 1. Community-acquired pneumonia. 2. Atrial fibrillation. 3. Underlying asthma. 4. Underlying chronic obstructive pulmonary disease. PLAN: She seems to be responding appropriately to antibiotic therapy. We have seen a decrease in her white count from 22 to 13. She is growing out pneumococcus from her blood cultures which would normally be sensitive to ceftriaxone and usually to azithromycin. Job ID: [id number]
[2019-10-22] MEDS ORDERED: Furosemide 40 MG/4 ML VIAL SLOW IVP SCH (14:00)
[2019-10-22] MEDS ORDERED: Potassium Chloride 20 MEQ TAB PO SCH (14:00)
[2019-10-22] MEDS: Dronedarone HCl 400 MG TAB PO SCH (16:52)
[2019-10-22] MEDS: Amitriptyline HCl 100 MG TAB PO SCH (20:07)
--- NOTE | 2019-10-22 21:15 | CON ---
DATE OF CONSULTATION: 10/22/2019 REASON FOR CONSULTATION: Atrial fibrillation with a rapid ventricular response, pneumonia bilateral. HISTORY OF PRESENT ILLNESS: Ms. Pretty is a very pleasant 64-year-old woman. She has a history of fever and has been found to have bilateral pneumonia. During this hospitalization, the patient developed atrial fibrillation with a rapid ventricular response. She is not having any chest pain. She is having some difficulty breathing, but she is okay at rest. Overall, she is feeling somewhat better. She does not have any previous history of atrial fibrillation that she knows of. She does have a history of reactive airway disease, she sees Dr. Vivas. The patient is resting comfortably now. MEDICATIONS: 1. Amitriptyline. 2. Ibuprofen at home. 3. Furosemide 40 mg a day. 4. Potassium. 5. Prednisone. 6. Brovana inhaler. 7. Zanaflex. ALLERGIES: NONE KNOWN. SOCIAL HISTORY: No alcohol or tobacco. REVIEW OF SYSTEMS: CONSTITUTIONAL: Positive for cough with no weakness. VISION: No changes. HEARING: No changes. PULMONARY: Positive for cough and fever. CARDIAC: No chest pain or pressure. GASTROINTESTINAL: No nausea, vomiting, or diarrhea. SKIN: No rashes. NEUROLOGIC: No unilateral weakness or numbness. PSYCHIATRIC: No unusual depression or anxiety. PHYSICAL EXAMINATION: GENERAL: This is a pleasant 64-year-old woman. She is 5 feet 6 inches tall, 260 pounds. EYES: Sclerae nonicteric. MOUTH: Mucous membranes moist. NECK: Supple. No lymphadenopathy. LUNGS: Clear. I do not hear any wheezing, rales, or rhonchi. CARDIAC: She is tachycardic and irregular. ABDOMEN: Soft and nontender. EXTREMITIES: No clubbing or cyanosis. There is mild peripheral edema. LABORATORY STUDIES: Troponin 0.080. Potassium is 4.0 yesterday. BNP 347. Hemoglobin is still 11.5. WBC has gone from 20.7 to 13.6. Currently, EKG reveals atrial fibrillation with a rate of [address] changes. ASSESSMENT: 1. Atrial fibrillation with a rapid rate. 2. Bilateral pneumonia with microbiology growing out Strep pneumoniae. 3. History of reactive airway disease. 4. Diastolic heart failure with echocardiogram in 2018 showing normal left ventricular function with some estimate of diastolic dysfunction. PLAN: 1. She is on antibiotics. 2. Give her dose of Lasix and potassium. 3. Start Multaq. 4. She is fully anticoagulated with enoxaparin. We will follow with you. Job ID: [id number]
--- NOTE | 2019-10-22 21:53 | PDOC.HOSPP ---
- Subjective Encounter Date: 10/22/19 - Objective Vital Signs & Weight: Vital Signs (12 hours) Temp Pulse Resp BP Pulse Ox 10/22/19 19:16 95 10/22/19 19:15 94 L 10/22/19 19:13 92 L 10/22/19 19:00 98.1 F 100 20 129/76 96 10/22/19 15:19 98.4 F 113 H 18 153/78 H 98 10/22/19 14:55 118 H 16 10/22/19 11:15 98.5 F 105 H 20 133/64 95 10/22/19 10:47 108 H 16 Weight Weight 260 lb 12.8 oz I&O: 10/21/19 10/22/19 10/23/19 06:59 06:59 06:59 Intake Total 2550 2340 Output Total 1150 2350 Balance 1400 -10 Result Diagrams: 10/22/19 05:03 10/20/19 22:16 Hospitalist ROS - Medication Medications: Active Medications Generic Name Dose Route Start Last Admin Trade Name Shasta PRN Reason Stop Dose Admin Albuterol/Ipratropium 3 ml 10/21/19 07:00 10/22/19 19:15 Duoneb NEB 3 ml QID-RT KRYSTIN Administration Amitriptyline HCl 200 mg 10/21/19 21:00 10/22/19 20:07 Elavil PO 200 mg HS KRYSTIN Administration Dronedarone 400 mg 10/22/19 17:00 10/22/19 16:52 Multaq PO 400 mg BID-WM KRYSTIN Administration Enoxaparin Sodium 120 mg 10/21/19 21:00 10/22/19 20:07 Lovenox SC 120 mg 0900,2100 KRYSTIN Administration Guaifenesin 1,200 mg 10/21/19 09:00 10/22/19 20:07 Mucinex PO 1,200 mg BID KRYSTIN Administration Azithromycin 500 mg/ Sodium 250 mls @ 250 mls/hr 10/21/19 03:00 10/22/19 02: 40 Chloride IVPB 250 mls Q24HR KRYSTIN Administration Ceftriaxone Sodium 1 gm/ 100 mls @ 200 mls/hr 10/21/19 02:00 10/22/19 01:20 Sodium Chloride IVPB 100 mls Q24HR KRYSTIN Administration Sodium Chloride 1,000 mls @ 75 mls/hr 10/21/19 01:15 10/22/19 16:52 Normal Saline 0.9% IV 1,000 mls .[id number] KRYSTIN Administration Diltiazem HCl 125 mg/ Sodium 125 mls @ 7.5 mls/hr 10/21/19 19:00 10/22/19 09: 09 Chloride IVPB 125 mls INF KRYSTIN Administration Protocol 7.5 MG/HR Mometasone Furoate 1 puff 10/21/19 06:30 10/22/19 19:13 Asmanex Hfa 100 Mcg INH 1 puff BID-RT KRYSTIN Administration Buprenorphine Hcl/ 0 each 10/21/19 01:47 10/21/19 09:32 Naloxone Hcl 2-0.5 SL 1 each Mg Sl Q12HR PRN Administration Chronic Pain Prednisone 5 mg 10/22/19 08:00 10/22/19 09:59 Prednisone PO 5 mg QAM-WM KRYSTIN Administration Sodium Chloride 10 ml 10/21/19 09:00 10/22/19 20:08 Flush - Normal Saline IVF Not Given Q12HR KRYSTIN Tizanidine HCl 4 mg 10/21/19 16:52 10/21/19 20:18 Zanaflex PO 4 mg Q8H PRN Administration Muscle Spasm - Exam General Appearance: NAD, awake alert Heart: no murmur, irregular Respiratory: CTAB, no wheezes, no rales, no ronchi, normal chest expansion, no tachypnea, normal percussion Gastrointestinal: soft, non-tender, non-distended, normal bowel sounds, no palpable masses, no hepatomegaly, no splenomegaly, no bruit Extremities: no cyanosis, no clubbing, no edema Musculoskeletal: normal tone, normal strength, no muscle wasting Psychiatric: normal affect, normal behavior, A&O x 3 Hosp A/P (1) Acute respiratory failure with hypoxia Code(s): J96.01 - ACUTE RESPIRATORY FAILURE WITH HYPOXIA Status: Resolved (2) PNA (pneumonia) Code(s): J18.9 - PNEUMONIA, UNSPECIFIED ORGANISM Status: Acute Qualifiers: Pneumonia type: due to unspecified organism (3) Obesity Code(s): E66.9 - OBESITY, UNSPECIFIED Status: Chronic Qualifiers: Obesity classification: adult class 3 (BMI >= 40) Body mass index: BMI 40.0 -44.9 (4) Atrial fibrillation Code(s): I48.91 - UNSPECIFIED ATRIAL FIBRILLATION Status: Acute (5) Sepsis Code(s): A41.9 - SEPSIS, UNSPECIFIED ORGANISM Status: Suspected Qualifiers: Sepsis type: sepsis due to unspecified organism (6) Asthma Code(s): J45.909 - UNSPECIFIED ASTHMA, UNCOMPLICATED Status: Acute (7) Bacteremia due to Streptococcus pneumoniae Code(s): R78.81 - BACTEREMIA Status: Acute - Plan Doing better. Continue nebs, oxygen. Continue Rocephin, Azithromycin. Pulm following. Cards following. Starting Multaq. On anticoag.
[2019-10-23] MEDS: cefTRIAXone\\ROCEPHIN 1 GM in Sodium Chloride 0.9% 100 ML IVPB SCH (02:43)
[2019-10-23] MEDS: Azithromycin 500 MG in Sodium Chloride 0.9% 250 ML 250 ML IVPB SCH (02:47)
[2019-10-23] MEDS: tiZANidine HCl 4 MG TAB PO PRN ×2 (03:46→17:53)
[2019-10-23] MEDS: Sodium Chloride 0.9% 1,000 ML IV SCH ×2 (05:58→21:06)
[2019-10-23] MEDS: Mometasone 100 MCG HFA INHALER INH SCH ×2 (06:16→18:56)
[2019-10-23 06:45] LABS: #Eosinphils 0.1 thou/uL (0.0-0.7); #Lymphocytes 1.4 thou/uL (1.20-3.40); #Monocytes 0.6 thou/uL (0.11-0.59); #Neutrophils 5.6 thou/uL (1.40-6.50); %Basophils 0.4 % (0.0-1.0); %Eosinophils 1.8 % (0.0-10.0); %Lymphocytes 18.5 % (21.0-51.0); %Monocytes 7.2 % (0.0-10.0); %Neutrophils 72.2 % (42.0-75.0); Hemoglobin 10.2 g/dL (12.0-16.0); Mean Corpuscular HGB CONC 32.2 g/dL (32.0-36.0); Mean Corpuscular Hemoglobin 31.2 pg (27.0-31.0); Mean Corpuscular Volume 96.8 fL (78.0-98.0); Platelet Count 133 thou/uL (130-400); RBC Distribution Width 11.8 % (11.5-14.5); Red Blood Cell (RBC) Count 3.26 mill/uL (4.20-5.40); White Blood Cell (WBC) Count 7.7 thou/uL (4.8-10.8)
[2019-10-23 07:07] LABS: Anion Gap 12 mmol/L (10-20); BUN (Urea Nitrogen) 17 mg/dL (9.8-20.1); Calc. Creatinine Clearance 122 mL/min (70-130); Calcium 8.2 mg/dL (7.8-10.44); Carbon Dioxide 34 mmol/L (23-31); Chloride 101 mmol/L (98-107); Estimated GFR-MDRD 79; Glucose 100 mg/dL (80-115); Potassium 3.5 mmol/L (3.5-5.1); Sodium 143 mmol/L (136-145)
[2019-10-23] MEDS: predniSONE 5 MG TAB PO SCH (08:53)
[2019-10-23] MEDS: Dronedarone HCl 400 MG TAB PO SCH ×2 (08:54→17:51)
[2019-10-23] MEDS: guaiFENesin ER 600 MG TAB PO SCH ×2 (08:54→21:08)
[2019-10-23] MEDS: Enoxaparin Sodium 120 MG/0.8 ML SYRINGE SC SCH ×2 (08:54→21:09)
--- NOTE | 2019-10-23 13:40 | PRG ---
DATE OF SERVICE: 10/23/2019 SUBJECTIVE: Ms. Pretty feels better, had no acute complaints. OBJECTIVE: VITAL SIGNS: On examination, temperature 98.3, pulse 108, respiratory rate 25, O2 saturation 97% on 2 L, and blood pressure 123/67. HEENT: Unremarkable. NECK: No adenopathy or JVD. CARDIAC: S1 and S2. Irregularly irregular. LUNGS: Crackles at both bases. ABDOMEN: Morbidly obese, soft, and nontender. EXTREMITIES: No edema. LABORATORY DATA: White blood cell count 7.7, down from admission of 20.7; platelet count 133; and hematocrit 31.5. Sodium 143, potassium 3.5, chloride 101, CO2 of 34, BUN 17, creatinine 0.8, and glucose 100. IMAGING DATA: Echocardiogram from yesterday demonstrated no new acute findings. ASSESSMENT: 1. Bilateral pneumonia. 2. Atrial fibrillation. 3. Underlying asthma/chronic obstructive pulmonary disease. PLAN: She will continue antibiotics. She is now on low-dose oral prednisone. She seems to respond to therapy appropriately. Cardiology is managing her atrial fibrillation. I would think once that is under control, she can be discharged. Job ID: [id number]
--- NOTE | 2019-10-23 17:11 | PDOC.HOSPP ---
- Subjective Subjective: Feeling better. Breathing better. Was able to get up to the bathroom fairly well today. - Objective Vital Signs & Weight: Vital Signs (12 hours) Temp Pulse Resp BP Pulse Ox 10/23/19 15:25 98.6 F 114 H 18 121/82 95 10/23/19 14:46 98 16 10/23/19 11:09 98.3 F 108 H 25 H 123/67 97 10/23/19 10:13 106 H 16 10/23/19 07:40 98.7 F 99 20 121/72 96 10/23/19 06:16 64 12 10/23/19 06:13 93 L 10/23/19 06:12 64 12 Weight Weight 260 lb 12.8 oz I&O: 10/22/19 10/23/19 10/24/19 06:59 06:59 06:59 Intake Total 2550 3770 Output Total 1150 3750 Balance 1400 20 Result Diagrams: 10/23/19 06:29 10/23/19 06:29 Hospitalist ROS - Medication Medications: Active Medications Generic Name Dose Route Start Last Admin Trade Name Freq PRN Reason Stop Dose Admin Albuterol/Ipratropium 3 ml 10/21/19 07:00 10/23/19 14:46 Duoneb NEB 3 ml QID-RT KRYSTIN Administration Amitriptyline HCl 200 mg 10/21/19 21:00 10/22/19 20:07 Elavil PO 200 mg HS KRYSTIN Administration Dronedarone 400 mg 10/22/19 17:00 10/23/19 08:54 Multaq PO 400 mg BID-WM KRYSTIN Administration Enoxaparin Sodium 120 mg 10/21/19 21:00 10/23/19 08:54 Lovenox SC 120 mg 0900,2100 KRYSTIN Administration Guaifenesin 1,200 mg 10/21/19 09:00 10/23/19 08:54 Mucinex PO 1,200 mg BID KRYSTIN Administration Azithromycin 500 mg/ Sodium 250 mls @ 250 mls/hr 10/21/19 03:00 10/23/19 02: 47 Chloride IVPB 250 mls Q24HR KRYSTIN Administration Ceftriaxone Sodium 1 gm/ 100 mls @ 200 mls/hr 10/21/19 02:00 10/23/19 02:43 Sodium Chloride IVPB 100 mls Q24HR KRYSTIN Administration Sodium Chloride 1,000 mls @ 75 mls/hr 10/21/19 01:15 10/23/19 05:58 Normal Saline 0.9% IV 1,000 mls .[id number] KRYSTIN Administration Diltiazem HCl 125 mg/ Sodium 125 mls @ 7.5 mls/hr 10/21/19 19:00 10/22/19 09: 09 Chloride IVPB 125 mls INF KRYSTIN Administration Protocol 7.5 MG/HR Mometasone Furoate 1 puff 10/21/19 06:30 10/23/19 06:16 Asmanex Hfa 100 Mcg INH 1 puff BID-RT KRYSTIN Administration Buprenorphine Hcl/ 0 each 10/21/19 01:47 10/21/19 09:32 Naloxone Hcl 2-0.5 SL 1 each Mg Sl Q12HR PRN Administration Chronic Pain Prednisone 5 mg 10/22/19 08:00 10/23/19 08:53 Prednisone PO 5 mg QAM-WM KRYSTIN Administration Sodium Chloride 10 ml 10/21/19 09:00 10/23/19 08:54 Flush - Normal Saline IVF Not Given Q12HR KRYSTIN Tizanidine HCl 4 mg 10/21/19 16:52 10/23/19 03:46 Zanaflex PO 4 mg Q8H PRN Administration Muscle Spasm - Exam General Appearance: NAD, awake alert General - other findings: Obsee Heart: RRR, no murmur, no gallops, no rubs, normal peripheral pulses Respiratory: CTAB, no wheezes, no rales, no ronchi, normal chest expansion, no tachypnea, normal percussion Gastrointestinal: soft, non-tender, non-distended, normal bowel sounds, no palpable masses, no hepatomegaly, no splenomegaly, no bruit Extremities: no cyanosis, no clubbing, no edema Skin: normal turgor Musculoskeletal: normal tone Psychiatric: normal affect, normal behavior, A&O x 3 Hosp A/P (1) Acute respiratory failure with hypoxia Code(s): J96.01 - ACUTE RESPIRATORY FAILURE WITH HYPOXIA Status: Resolved (2) PNA (pneumonia) Code(s): J18.9 - PNEUMONIA, UNSPECIFIED ORGANISM Status: Acute Qualifiers: Pneumonia type: due to unspecified organism (3) Obesity Code(s): E66.9 - OBESITY, UNSPECIFIED Status: Chronic Qualifiers: Obesity classification: adult class 3 (BMI >= 40) Body mass index: BMI 40.0 -44.9 (4) Atrial fibrillation Code(s): I48.91 - UNSPECIFIED ATRIAL FIBRILLATION Status: Acute (5) Sepsis Code(s): A41.9 - SEPSIS, UNSPECIFIED ORGANISM Status: Suspected Qualifiers: Sepsis type: sepsis due to unspecified organism (6) Asthma Code(s): J45.909 - UNSPECIFIED ASTHMA, UNCOMPLICATED Status: Acute (7) Bacteremia due to Streptococcus pneumoniae Code(s): R78.81 - BACTEREMIA Status: Acute - Plan Doing better. Continue nebs, oxygen. Continue Rocephin, Azithromycin. Can likely change to po by tomorrow. Pulm following. Cards following. Starting Multaq. On anticoag. HR 98-108. Will discharge when ok with cards.
[2019-10-23] MEDS: Amitriptyline HCl 100 MG TAB PO SCH (21:08)
[2019-10-24] MEDS: cefTRIAXone\\ROCEPHIN 1 GM in Sodium Chloride 0.9% 100 ML IVPB SCH (02:18)
[2019-10-24] MEDS: Azithromycin 500 MG in Sodium Chloride 0.9% 250 ML 250 ML IVPB SCH (02:18)
[2019-10-24 04:28] LABS: Hemoglobin 11.2 g/dL (12.0-16.0); Platelet Count 151 thou/uL (130-400)
[2019-10-24] MEDS: Mometasone 100 MCG HFA INHALER INH SCH ×2 (06:39→19:00)
[2019-10-24] MEDS: predniSONE 5 MG TAB PO SCH (08:59)
[2019-10-24] MEDS: Enoxaparin Sodium 120 MG/0.8 ML SYRINGE SC SCH (08:59)
[2019-10-24] MEDS: Dronedarone HCl 400 MG TAB PO SCH ×2 (08:59→17:32)
[2019-10-24] MEDS: guaiFENesin ER 600 MG TAB PO SCH ×2 (08:59→21:01)
[2019-10-24] MEDS ORDERED: Potassium Chloride 20 MEQ TAB PO SCH (09:15)
[2019-10-24] MEDS: tiZANidine HCl 4 MG TAB PO PRN ×2 (09:15→21:04)
--- NOTE | 2019-10-24 09:37 | PRG ---
DATE OF SERVICE: 10/24/2019 SUBJECTIVE: Ms. Pretty is feeling better. When I walked in the room, she was on oxygen, but took the oxygen off. Her oxygen after being off for about 5 minutes was still 99% saturation. The patient has been getting up and around much. She has an IV pump. OBJECTIVE: VITAL SIGNS: Blood pressure 146/80, pulse 100 and irregular. LUNGS: Clear. CARDIAC: Irregularly irregular. ABDOMEN: Soft, nontender. EXTREMITIES: No edema. ASSESSMENT: 1. Atrial fibrillation, persistent, likely associated with her pneumonia. She did have some paroxysm of atrial fibrillation earlier during this hospitalization. In fact, on the she came out of fibrillation for a while and went back in. She also came in with sinus rhythm. 2. Pneumonia, improving. PLAN: 1. She is on Multaq 400 mg twice a day. 2. Cardizem. We will change to oral Cardizem 240 mg a day. 3. Change to Eliquis 5 mg twice a day. 4. We would not do cardioversion now. She is still going in and out of atrial fibrillation, so I would like to see us in the office in a few weeks. If she is still in fibrillation at that time, consideration for outpatient cardioversion. It is NOT indicated to cardiovert presently since she is still going in and out of fibrillation. Job ID: [id number]
--- NOTE | 2019-10-24 10:36 | PRG ---
DATE OF SERVICE: 10/24/2019 SUBJECTIVE: She feels better and wants to go home. OBJECTIVE: VITAL SIGNS: Her temperature is 97.6, pulse 105, respirations 20, O2 saturation 94% on 2 L, and blood pressure 146/80. HEENT: Unremarkable. NECK: No adenopathy, JVD, or bruits. LUNGS: Diminished breath sounds at both bases. CARDIAC: S1 and S2. Regular. ABDOMEN: Soft. EXTREMITIES: No edema. Cultures growing out pneumococcus, which is resistant to erythromycin. LABORATORY DATA: Hemoglobin 11.2, hematocrit 36.5, and platelet count 151. ASSESSMENT: 1. Pneumococcal pneumonia. 2. Acute hypoxic respiratory failure, which is better. 3. Underlying asthma/chronic obstructive pulmonary disease. PLAN: The patient will be changed to oral antibiotics-I will put her on Omnicef. She needs to continue this for about 10 days. From a Pulmonary aspect, she is probably stable for discharge, but I think there are Cardiology issues that will have to be addressed. Job ID: [id number]
[2019-10-24] MEDS: Cefdinir 300 MG CAP PO SCH (12:06)
--- NOTE | 2019-10-24 12:50 | PQF ---
ISSAC REILLY DAVID R MD [id number] CLINICAL DOCUMENTATION IMPROVEMENT CLARIFICATION FORM: ICD-10 Updated PLEASE DO AN ADDENDUM TO THE PROGRESS NOTE WITH ANY DOCUMENTATION UPDATES OR ADDITIONS AND CARRY THROUGH TO DC SUMMARY. THANK YOU. DATE: 10/24/19 ATTN: Dr. Garza Please exercise your independent, professional judgment in responding to the clarification form. Clinical indicators are provided on the bottom of this form for your review Please check appropriate box(s): [ ] Encephalopathy: Type: [ ] Acute [ ] Subacute [ ] Chronic Etiology: [ ] Metabolic [ ] Septic [ ] Unspecified [ ] in the setting of underlying dementia [ ] Other (please specify) [ ] Transient Alteration of Awareness [ ] Other diagnosis [ ] Unable to determine In addition, please specify: Present on Admission (POA): [ ] Yes [ ] No [ ] Unable to determine For continuity of documentation, please document condition throughout progress notes and discharge summary. Thank You. CLINICAL INDICATORS - SIGNS / SYMPTOMS / LABS / RESULTS AND LOCATION IN EMR Altered mental status / confusion-->10/21 H&P(Drew): " ROS unobtainable due to mental status; acute encephalopathy" Metabolic / electrolyte abnormality--> wbc 20.17, lactate 2.4 per 10/20 labs "Sepsis " per 10/21 H&P (Drew) RISK FACTORS / RESULTS AND LOCATION IN EMR Infectious process--> "Sepsis due to pneumonia" per 10/21 H&P (Drew) 10/20 Streptococcus Pneumoniae per blood culture-lab TREATMENTS / RESULTS AND LOCATION IN EMR IV antibiotics-->10/20 Levaquin 750 mg IV once--> Rocephin 1gm IV and Azithromycin 500mg IV daily 10/21-10/24--> Cefdir 600mg po daily 10/24 IV fluids--> 10/21 1.5 liter bolus NS then NS at 75 10/21 to 10/23 per orders (This form is maintained as a part of the permanent medical record) 2014 [employer]. All Rights Reserved Violet Aguirre RN, BSN, CCDS [email or web address] [phone] [facility]
--- NOTE | 2019-10-24 12:58 | PQF ---
ISSAC REILLY DAVID R MD [id number] CLINICAL DOCUMENTATION IMPROVEMENT CLARIFICATION FORM: ICD-10 Updated PLEASE DO AN ADDENDUM TO THE PROGRESS NOTE WITH ANY DOCUMENTATION UPDATES OR ADDITIONS AND CARRY THROUGH TO DC SUMMARY. THANK YOU. DATE: 10/24/19 ATTN: Dr. Garza Please exercise your independent, professional judgment in responding to the clarification form. Clinical indicators are provided on the bottom of this form for your review Please check appropriate box(s): Diastolic CHF: A. ACUITY [ ] Acute [ ] Acute on Chronic [ ] Chronic [ ] Other diagnosis [ ] Unable to determine In addition, please specify: Present on Admission (POA): [ ] Yes [ ] No [ ] Unable to determine For continuity of documentation, please document condition throughout progress notes and discharge summary. Thank You. CLINICAL INDICATORS - SIGNS / SYMPTOMS / LABS / RESULTS AND LOCATION IN EMR 10/21 H&P(Drew): SOB, chronic lower extremity edema 10/22 Adrianna: Diastolic HF with Echo 2018 Normal left ventricular function with osme estimate of disatolic dysfunction" 10/21 BNP 347.5 per lab 10/20 CXR Bibasilar pneumonia and possible small right pleural effusion RISKS FACTORS / RESULTS AND LOCATION IN EMR 10/20 H&P(Drew): " PMH: CHF(Diastolic, HTN, CKD stage II vs TALHA" TREATMENTS / RESULTS AND LOCATION IN EMR Cardiac monitoring / telemetry 10/21 orders IV Diuretics--> Lasix 40mg IV once 10/20 and 10/22 per orders Oxygen--> BIPAP to 2-3 L NC 10/21 per orders Cardiology Consult 10/21 orders (This form is maintained as a part of the permanent medical record) 2014 [employer]. All Rights Reserved Violet Aguirre RN, BSN, CCDS [email or web address] [phone] JOS[facility]
[2019-10-24] MEDS ORDERED: Hydrocortisone Valerate 0.2% Cream 60 gm Tube TOP SCH (21:00)
[2019-10-24] MEDS: Amitriptyline HCl 100 MG TAB PO SCH (21:01)
[2019-10-24] MEDS: BUPRENORPHINE HCL SL PRN (21:02)
[2019-10-24] MEDS: Apixaban 5 MG TAB PO SCH (21:02)
[2019-10-24] MEDS: Triamcinolone 0.1% Cream 30 GM TUBE TOP SCH (21:02)
[2019-10-24] MEDS: NALOXONE HCL SL PRN (21:02)
[2019-10-25] MEDS: Mometasone 100 MCG HFA INHALER INH SCH (07:36)
[2019-10-25] MEDS: Apixaban 5 MG TAB PO SCH (08:47)
[2019-10-25] MEDS: predniSONE 5 MG TAB PO SCH (08:47)
[2019-10-25] MEDS: guaiFENesin ER 600 MG TAB PO SCH (08:47)
[2019-10-25] MEDS: Dronedarone HCl 400 MG TAB PO SCH ×2 (08:47→17:26)
[2019-10-25] MEDS: Triamcinolone 0.1% Cream 30 GM TUBE TOP SCH (08:49)
[2019-10-25] MEDS: NALOXONE HCL SL PRN (09:49)
[2019-10-25] MEDS: BUPRENORPHINE HCL SL PRN (09:49)
[2019-10-25] MEDS: Cefdinir 300 MG CAP PO SCH (12:24)
[2019-10-25] MEDS: tiZANidine HCl 4 MG TAB PO PRN (12:27)
--- NOTE | 2019-10-25 13:29 | PRG ---
DATE OF SERVICE: 10/25/2019 SUBJECTIVE: Ms. Pretty is doing reasonably well. She wants to go home. OBJECTIVE: VITAL SIGNS: Temperature 97.5, pulse 99, respirations 18, O2 saturation 94% on 3L, and blood pressure 128/88. HEENT: Unremarkable. NECK: No adenopathy or JVD. CHEST: Clear. CARDIAC: S1 and S2, irregular. ABDOMEN: Soft. EXTREMITIES: No edema. ASSESSMENT: 1. Pneumococcal pneumonia. 2. Acute hypoxic respiratory failure. 3. Underlying chronic obstructive pulmonary disease. 4. Atrial fibrillation. PLAN: The patient will continue Omnicef and complete about 10 days total therapy. She is clear to go home from pulmonary standpoint. Dr. Marshall is available tomorrow if needed. Otherwise, I will see her again on if she is still here. Job ID: [id number]
--- NOTE | 2019-10-25 15:30 | PDOC.CPN ---
- Subjective Date: 10/25/19 Time: 15:35 Interval history: The pt seen and examined. No overnight events. No cardiac complaints. - Objective Allergies/Adverse Reactions: Allergies Allergy/AdvReac Type Severity Reaction Status Date / Time No Known Allergies Allergy Verified 06/30/18 15:05 Visit Medications: Current Medications Albuterol/Ipratropium (Duoneb) 3 ml NEB QID-RT [facility] Last Admin: 10/25/19 14:43 Dose: 3 ml Amitriptyline HCl (Elavil) 200 mg PO HS [facility] Last Admin: 10/24/19 21:01 Dose: 200 mg Apixaban (Eliquis) 5 mg PO BID [facility] Last Admin: 10/25/19 08:47 Dose: 5 mg Cefdinir (Omnicef) 600 mg PO 1200 [facility] Last Admin: 10/25/19 12:24 Dose: 600 mg Diltiazem HCl (Cardizem Cd) 240 mg PO DAILY [facility] Last Admin: 10/25/19 08:47 Dose: 240 mg Dronedarone (Multaq) 400 mg PO BID-WM [facility] Last Admin: 10/25/19 08:47 Dose: 400 mg Guaifenesin (Mucinex) 1,200 mg PO BID [facility] Last Admin: 10/25/19 08:47 Dose: 1,200 mg Mometasone Furoate (Asmanex Hfa 100 Mcg) 1 puff INH BID-RT [facility] Last Admin: 10/25/19 07:36 Dose: 1 puff Buprenorphine Hcl/Naloxone Hcl 2-0.5 Mg Sl 0 each SL Q12HR PRN PRN Reason: Chronic Pain Last Admin: 10/25/19 09:49 Dose: 1 each Prednisone (Prednisone) 5 mg PO QAM-WM [facility] Last Admin: 10/25/19 08:47 Dose: 5 mg Sodium Chloride (Flush - Normal Saline) 10 ml IVF Q12HR KRYSTIN Last Admin: 10/25/19 08:47 Dose: 10 ml Sodium Chloride (Flush - Normal Saline) 10 ml IVF PRN PRN PRN Reason: Saline Flush Tizanidine HCl (Zanaflex) 4 mg PO Q8H PRN PRN Reason: Muscle Spasm Last Admin: 10/25/19 12:27 Dose: 4 mg Triamcinolone Acetonide (Kenalog 0.1% Cream) 0 gm TOP BID [facility] Last Admin: 10/25/19 08:49 Dose: 1 applic Vital Signs & Weight: Vital Signs Temp Pulse Pulse Resp BP BP BP 10/25/19 14:43 98 16 10/25/19 11:53 97.5 F L 99 18 128/88 10/25/19 11:37 119 H 124/81 145/92 H 10/25/19 10:28 97 16 10/25/19 08:39 97.4 F L 110 H 18 136/71 10/25/19 07:35 101 H 16 10/25/19 04:00 98.5 F 104 H 20 128/75 Pulse Ox 10/25/19 14:43 94 L 10/25/19 11:53 94 L 10/25/19 11:37 10/25/19 10:28 94 L 10/25/19 08:39 94 L 10/25/19 07:35 92 L 10/25/19 04:00 92 L Weight 290 lb 14.4 oz - Physical Exam General: alert & oriented x3 HEENT: mucus membranes moist Neck: supple neck Lungs: decreased breath sounds, wheezes Neuro: cranial nerve 2-12 intact - Labs Result Diagrams: 10/24/19 03:51 10/24/19 03:51 Troponin/CKMB CK-MB (CK-2) 5.6 ng/mL (0-6.6) 10/21/19 06:14 Troponin I 0.073 ng/mL (< 0.028) H 10/21/19 06:14 - Telemetry Supraventricular conduction: atrial fibrillation - Assessment/Plan Assessment/Plan: 1. Prox Afib - Well controlled HR with Multaq, Diltiazem, and Eliquis. Not on bblocker due to hx of Asthma. Possible DCCV in 4-6 wks if she is still in Afib. 2. PNA - on ABX 3. Asthma with home O2 - stable with NC 4. Obese MAR reviewed * From Cardiac standpoint, ok to d/c home. The pt will f/u with Dr Rodas's office within 2-4wks. (Pls give Multaq and Eliquis 30-day free coupons.)
[2019-10-25 16:05] VITALS: BP 137/89; TEMP 98.2
--- NOTE | 2019-10-25 21:47 | DIS ---
DATE OF ADMISSION: 10/21/2019 DATE OF DISCHARGE: 10/25/2019 DISCHARGE DIAGNOSES: 1. Acute on chronic hypoxic respiratory failure. 2. Community-acquired pneumonia. 3. Asthma. 4. Obstructive sleep apnea. 5. Atrial fibrillation with RVR. 6. Acute metabolic encephalopathy. 7. Morbid obesity. 8. History of diastolic heart failure with no evidence of active disease process. HISTORY OF PRESENT ILLNESS: This patient is a 64-year-old female with a history of morbid obesity, asthma, who presented to the hospital with shortness of breath, severe hypoxia and acute metabolic encephalopathy, primarily manifest as lethargy. HOSPITAL COURSE: The patient initially had chest x-ray concerning for possible lower lobe pneumonias. She had a subsequent CT scan of the chest showing multifocal infiltrates consistent with pneumonia. There was also some finding of generalized atherosclerosis debris within the thoracic esophagus, possibly reflux and moderate gallbladder distention without evidence of overt inflammatory changes. She was seen in consultation by Pulmonary and Cardiology. She was started on antibiotic therapy and supplemental oxygen therapy along with nebulizer treatments. She subsequently developed atrial fibrillation with rapid ventricular response and was seen by Dr. Rodas. The patient was placed on Multaq and Eliquis and ultimately did achieve good rate control. With that, her symptoms also improved somewhat and she was feeling back to her baseline. She was able to get up and go to the bathroom on her own and she felt as though she was back to her baseline functional status. However, she was evaluated by Physical Therapy and was felt to likely benefit from ongoing therapy. Therefore, home health and home physical therapy were recommended. The patient also had an echocardiogram, which revealed atrial fibrillation. Left ventricular size was normal. EF was 50% to 55%. Left atrium was [id number]-[id number]-[id number] dilated without significant valvular disease noted. PHYSICAL EXAMINATION: VITAL SIGNS: On the day of discharge, temperature is 98.2, pulse 98 to 102, respirations 16 to 19, O2 saturation 92% on 3 L nasal cannula, and BP was 137/89. GENERAL: The patient is awake and alert, very pleasant, cooperative, eager to go home. HEART: Irregularly irregular without murmurs. LUNGS: Diminished but clear bilaterally with no wheezes or rales. ABDOMEN: Soft, nontender, and nondistended. Morbidly obese. EXTREMITIES: Had no edema. DISPOSITION: The patient is discharged home in stable condition. DISCHARGE MEDICATIONS: She is to be on: 1. Eliquis 5 mg b.i.d. 2. Omnicef 600 mg p.o. daily. 3. Diltiazem 240 mg daily. 4. Multaq 400 mg b.i.d. 5. Triamcinolone cream 0.1%. She will continue her usual home medications includin. Buprenorphine-naloxone 2/0.5 one tablet sublingual q.12 hours p.r.n. 2. Tessalon tablets p.r.n. 3. Amitriptyline 200 mg at bedtime. 4. Motrin 800 mg t.i.d. 5. DuoNeb p.r.n. 6. Albuterol HFA inhaler two puffs q.4 hours p.r.n. 7. Lasix 40 mg daily. 8. Trelegy Ellipta 100/62.5/25 one inhalation daily. 9. Potassium 20 mEq daily. 10. Prednisone 5 mg daily. 11. Guaifenesin 2 tablets b.i.d. 12. Brovana 15 mcg nebulized b.i.d. 13. Zanaflex p.r.n. ACTIVITY: As tolerated. DIET: She will be on a heart healthy diet. She is to follow up with Dr. Diaz in 7 days, Lloyd Sinha in 14 days, and Dr. Rodas next available appointment. She can return to the hospital at any time she feels the need to do so. TIME SPENT: Total time in discharge activity was 38 minutes. Job ID: [id number]
--- NOTE | 2019-10-26 23:46 | PQF ---
ISSAC REILLY DAVID R MD [id number] CLINICAL DOCUMENTATION CLARIFICATION FORM: POST DISCHARGE Addendum to original discharge summary date: ____ Late entry note date: __ DATE: 10/26/18 ATTN: Dakota Inman Please exercise your independent, professional judgment in responding to the clarification form. Clinical indicators are provided on the bottom of this form for your review Please check appropriate box(s) to clarify if the following diagnosis has been ruled in or ruled out: Sepsis [ x ] Ruled in diagnosis [ x ] Continue to treat [ ] Resolved [ ] Ruled out diagnosis [ ] Cannot rule out diagnosis [ ] Other diagnosis [ ] Unable to determine In addition, please specify: Present on Admission (POA): [ x] Yes [ ] No [ ] Unable to determine For continuity of documentation, please document condition throughout progress notes and discharge summary. Thank You. CLINICAL INDICATORS - SIGNS / SYMPTOMS / LABS Hospitalist H&P p1 10/21 Dr Russell brought in by family due to somnolence Hospitalist H&P p1 10/21 Dr Russell She sometimes has SOB while laying down but not always Hospitalist H&P p1 10/21 Dr Russell has been having a fever of 101.5 for the past weeks Hospitalist H&P p1 10/21 Dr Russell Labs remarkable for WBC of 20.7, Lactate of 2.4 RISK FACTORS Hospitalist H&P p1 10/21 64 year old female Hospitalist H&P p4 10/21 Sepsis from Pneumonia Hospitalist H&P p4 10/21 Acute hypoxic respiratory failure secondary to Pneumonia Consult p2 10/22 Bilateral Pneumonia with growing Strep Pneumoniae TREATMENTS JAN 04 IV Levaquin JAN 04 IV Lasix JAN 04 IV fluids bolus 2L Respiratory Panel 10/21 BiPap Hospitalist H&P p4 10/21 Repeat lactate (This form is maintained as a part of the permanent medical record) 2014 [employer], [email or web address] All Rights Reserved [email or web address] [not provided] MTDD
--- NOTE | 2019-10-28 10:55 | EKG ---
Test Reason : RHYTHM CHANGE Blood Pressure : / mmHG Vent. Rate : 125 BPM Atrial Rate : 120 BPM P-R Int : 000 ms QRS Dur : 100 ms QT Int : 326 ms P-R-T Axes : 000 -15 117 degrees QTc Int : 470 ms Atrial fibrillation with rapid ventricular response Cannot rule out Anterior infarct , age undetermined Abnormal ECG Confirmed by ISAIAH TRIVEDI ([id number]) on 10/28/2019 10:55:01 AM Referred By: Олег GARCIA Confirmed By:ISAIAH TRIVEDI
== END 2019-10-25 17:38 | disposition home or self-care (01) | DRG 871 ==
LOC: ERS 21:31 → ERHOLD 10-21 00:58 → 2NO 10-21 13:18
PROVIDERS: ADMIT Internal Medicine; ATTEND Internal Medicine
PROC: 5A09357 Assistance with Respiratory Ventilation, Less than 24 Consecutive Hours, Continuous Positive Airway Pressure (ICD-10-PCS; principal; 2019-10-21)
DX: A40.3 Sepsis due to Streptococcus pneumoniae (principal); J13 Pneumonia due to Streptococcus pneumoniae; J96.21 Acute and chronic respiratory failure with hypoxia; G93.41 Metabolic encephalopathy; Z68.42 Body mass index [BMI] 45.0-49.9, adult; I50.32 Chronic diastolic (congestive) heart failure; J44.0 Chronic obstructive pulmonary disease with (acute) lower respiratory infection; G47.33 Obstructive sleep apnea (adult) (pediatric); I48.91 Unspecified atrial fibrillation; E66.01 Morbid (severe) obesity due to excess calories; I34.0 Nonrheumatic mitral (valve) insufficiency; F32.9 Major depressive disorder, single episode, unspecified; G89.29 Other chronic pain; M54.9 Dorsalgia, unspecified; Z90.49 Acquired absence of other specified parts of digestive tract; Z28.21 Immunization not carried out because of patient refusal
CPT/HCPCS: 36415; 71045; 71250; 80048; 80053; 82330; 82435; 82553; 82565; 82803; 82805; 83605; 83880; 84132; 84295; 84484; 85014; 85018; 85025; 85027; 85049; 87040; 87077; 87149; 87186; 87804; 93005; 93010; 93306; 94640; 94644; 94660; 96365; 96366; 96375; J0456; J0696; J1644; J1650; J1940; J1956; J3490; J7050; J7512; J7611; J7620

== ENCOUNTER 2019-11-11 09:39 | Emergency (ER) | payer OTHER ==
[2019-11-11 11:22] LABS: Actual Bicarbonate (HCO3a) 31.8 mEq/L (22-28); Analyzer IN Cardio ER; CO2 Tension 51.5 mmHg (35.0-45.0); Calcium, Ionized 1.11 mmol/L (1.12-1.30); Carboxyhemoglobin (COHb) 0.6 gm% (0.0-3.0); Hemoglobin (Hb) 11.8 g/dL (12.0-16.0); Potassium - ABG Lab 3.39 mmol/L (3.70-5.30); pH, Arterial 7.41 (7.35-7.45)
[2019-11-11 11:27] LABS: O2 Tension (PaO2) 51.1 mmHg (> 80.0)
[2019-11-11 11:28] LABS: ALV-art Gradient 34.255 (0-20); Puncture Site LBA
[2019-11-11 11:35] LABS: #Eosinphils 0.1 thou/uL (0.0-0.7); #Lymphocytes 1.2 thou/uL (1.20-3.40); #Monocytes 0.3 thou/uL (0.11-0.59); %Basophils 0.3 % (0.0-1.0); %Eosinophils 3.6 % (0.0-10.0); %Lymphocytes 32.7 % (21.0-51.0); %Monocytes 8.1 % (0.0-10.0); %Neutrophils 55.2 % (42.0-75.0); Hemoglobin 11.5 g/dL (12.0-16.0); Mean Corpuscular HGB CONC 31.5 g/dL (32.0-36.0); Mean Corpuscular Hemoglobin 30.7 pg (27.0-31.0); Mean Corpuscular Volume 97.6 fL (78.0-98.0); Platelet Count 139 thou/uL (130-400); RBC Distribution Width 12.2 % (11.5-14.5); Red Blood Cell (RBC) Count 3.75 mill/uL (4.20-5.40); White Blood Cell (WBC) Count 3.6 thou/uL (4.8-10.8)
--- NOTE | 2019-11-11 11:49 | RAD ---
XR Chest 1 View Portable HISTORY: Dyspnea COMPARISON: 02/18/2019 FINDINGS: The heart size is stable. Significant interval improvement is seen in the areas of consolid ation noted on the previous study. No pneumothoraces or large effusions are identified.
[2019-11-11 11:57] LABS: ALT (SGPT) 11 U/L (8-55); AST (SGOT) 16 U/L (5-34); Albumin 3.9 g/dL (3.4-4.8); Alkaline Phosphatase 74 U/L (40-110); Anion Gap 12 mmol/L (10-20); BUN (Urea Nitrogen) 9 mg/dL (9.8-20.1); Bilirubin, Total 0.7 mg/dL (0.2-1.2); CK (CPK) 131 U/L (29-168); Calc. Creatinine Clearance 0 mL/min (70-130); Calcium 8.5 mg/dL (7.8-10.44); Carbon Dioxide 34 mmol/L (23-31); Chloride 98 mmol/L (98-107); Estimated GFR-MDRD 57; Globulin 2.2 g/dL (2.4-3.5); Glucose 97 mg/dL (80-115); Lipase 8 U/L (8-78); Potassium 3.6 mmol/L (3.5-5.1); Protein, Total 6.1 g/dL (6.0-8.3); Sodium 140 mmol/L (136-145)
[2019-11-11 12:15] LABS: CKMB 3.1 ng/mL (0-6.6)
== END 2019-11-11 13:19 | disposition home or self-care (01) ==
LOC: ERS 09:39
DX: M79.89 Other specified soft tissue disorders (principal); J45.909 Unspecified asthma, uncomplicated; Z79.51 Long term (current) use of inhaled steroids
CPT/HCPCS: 71045; 80053; 82550; 82553; 82805; 83690; 83880; 84484; 85025; 93005; 94760

== ENCOUNTER 2019-11-25 10:21 | Day surgery (SDC) | payer OTHER ==
[2019-11-24 09:53] VITALS: BMI 41.4
[~2019-11-25 10:21] MED LIST: Lidocaine 1% PF 5 ML VIAL ONE; PROPOFOL 200 MG/20 ML VIAL ONE
[2019-11-25] MEDS ORDERED: Potassium Chloride 20 MEQ TAB PO SCH (12:15)
--- NOTE | 2019-11-25 19:11 | OP ---
DATE OF PROCEDURE: 11/25/19 SURGEON: Zuhair Rodas M.D. PROCEDURE: Cardioversion. PROCEDURE IN DETAIL: The patient is brought to the Post Cath area in the fasting state. The patient had been on Eliquis. S he was sedated by anesthesia and given a 200 joule direct current energy dose synchronized which conv erted her to sinus rhythm. CONCLUSION: Successful cardioversion.
== END 2019-11-25 12:40 | disposition home or self-care (01) ==
LOC: CCL 10:21
PROVIDERS: ATTEND Internal Medicine Cardiovascular Disease
PROC: 5A2204Z Restoration of Cardiac Rhythm, Single (ICD-10-PCS; principal; 2019-11-25)
DX: I48.19 Other persistent atrial fibrillation (principal); G47.33 Obstructive sleep apnea (adult) (pediatric); J45.40 Moderate persistent asthma, uncomplicated; I50.32 Chronic diastolic (congestive) heart failure; E66.01 Morbid (severe) obesity due to excess calories; Z68.41 Body mass index [BMI] 40.0-44.9, adult; Z79.01 Long term (current) use of anticoagulants; Z79.52 Long term (current) use of systemic steroids; Z79.899 Other long term (current) drug therapy
CPT/HCPCS: 92960; J2001; J2704

== ENCOUNTER 2020-10-08 15:00 | Inpatient (IN) | payer OTHER ==
[2020-10-08] MEDS ORDERED: Acetaminophen 325 MG TAB ONE ×2 (16:25→19:44)
[2020-10-08] MEDS ORDERED: HYDROcodone/Acetaminophen 5/325 mg Tablet ONE ×2 (16:25→19:44)
[2020-10-08] MEDS ORDERED: Ketorolac Tromethamine 30 MG/ML VIAL ONE ×2 (16:25→19:44)
--- NOTE | 2020-10-08 17:43 | RAD ---
AP view of the pelvis INDICATION: Fall with pelvic pain COMPARISON: None. FINDINGS: Bones: No acute fracture or subluxation is evident. Bone mineralization appears within normal limits. Hips: Intact. SI joints and symphysis pubis: Normal appearing. Intrapelvic contents: Small phleboliths are seen within the lower left hemipelvis. IMPRESSION: No acute osseous abnormality.
--- NOTE | 2020-10-08 17:44 | RAD ---
Chest AP view INDICATION: Fall with chest pain COMPARISON: April 11, 2020 FINDINGS: Lungs: Chronic lung changes appear similar. Cardiac silhouette: Stable mild cardiomegaly Pulmonary vasculature: Normal Pleural spaces: No pleural effusion or pneumothorax is demonstrated. Upper abdomen: No abnormality seen. Osseous structures: No acute osseous abnormality. Additional findings: None. IMPRESSION: No acute cardiopulmonary abnormality.
--- NOTE | 2020-10-08 17:45 | RAD ---
XR Knee Lt 4 View STANDARD: 10/08/2020 5:10 PM CLINICAL INDICATION: Fall with left knee pain COMPARISON: January 04, 2009 FINDINGS: Bones: No acute fracture is demonstrated. Joints: There is worsening moderate to severe left knee osteoarthrosis. There is a 1.2 cm intra-artic ular body seen within the popliteal hiatus.. Soft Tissue: There is diffuse soft tissue swelling of the left thigh and left foreleg. IMPRESSION: Worsening moderate to severe left knee osteoarthrosis with an intra-articular body seen in the region of the popliteal hiatus. No acute fracture or subluxation demonstrated.
--- NOTE | 2020-10-08 17:47 | RAD ---
Exam:4 views right HISTORY: Injury. Fall COMPARISON: None FINDINGS: Diffuse bony mineralization. No joint effusion. No fracture or dislocation. Wamy-vb-dybiqwy e tricompartmental degenerative change. IMPRESSION: No post traumatic change.
[2020-10-08 19:46] LABS: #Eosinphils 0.1 thou/uL (0.0-0.7); #Lymphocytes 1.2 thou/uL (1.20-3.40); #Monocytes 0.9 thou/uL (0.11-0.59); %Basophils 0.1 % (0.0-1.0); %Eosinophils 0.8 % (0.0-10.0); %Lymphocytes 11.9 % (21.0-51.0); %Monocytes 8.7 % (0.0-10.0); %Neutrophils 78.4 % (42.0-75.0); Hemoglobin 11.8 g/dL (12.0-16.0); Mean Corpuscular HGB CONC 33.5 g/dL (32.0-36.0); Mean Corpuscular Hemoglobin 31.3 pg (27.0-31.0); Mean Corpuscular Volume 93.4 fL (78.0-98.0); Mean Platelet Volume 8.5 fL (7.4-10.4); Platelet Count 139 thou/uL (130-400); RBC Distribution Width 12.4 % (11.5-14.5); Red Blood Cell (RBC) Count 3.78 mill/uL (4.20-5.40); White Blood Cell (WBC) Count 10.1 thou/uL (4.8-10.8)
[2020-10-08 20:14] LABS: ALT (SGPT) 44 U/L (8-55); AST (SGOT) 99 U/L (5-34); Albumin 3.7 g/dL (3.4-4.8); Alkaline Phosphatase 82 U/L (40-110); Anion Gap 21 mmol/L (10-20); BUN (Urea Nitrogen) 59 mg/dL (9.8-20.1); Bilirubin, Total 1.4 mg/dL (0.2-1.2); CK (CPK) 1682 U/L (29-168); Calc. Creatinine Clearance 0 mL/min (70-130); Calcium 7.9 mg/dL (7.8-10.44); Carbon Dioxide 31 mmol/L (23-31); Chloride 93 mmol/L (98-107); Globulin 2.2 g/dL (2.4-3.5); Glucose 114 mg/dL (80-115); Potassium 3.6 mmol/L (3.5-5.1); Protein, Total 5.9 g/dL (6.0-8.3); Sodium 141 mmol/L (136-145)
[2020-10-08 20:34] LABS: CKMB 6.3 ng/mL (0-6.6)
[2020-10-08] MEDS ORDERED: Aspirin Chewable 81 MG TAB ONE (20:40)
[2020-10-08 22:56] LABS: Bacteria/HPF 3+ HPF (None Seen); Bilirubin Negative (Negative); Blood, Urine 1+ (Negative); Clarity Turbid (Clear); Glucose, Urine (Dipstick) Normal (Negative); Ketone, Urine Negative (Negative); Leukocyte 250 Leu/uL (Negative); Nitrite Negative (Negative); Protein, Urine (Dipstick) Negative (Neg-Trace); RBC/HPF 0-3 HPF (0-3); Renal Epithelial 0-3 HPF (None Seen); Specific Gravity, Urine 1.011 (1.002-1.036); Urobilinogen Normal mg/dL (Less than 2); pH, Urine 5.5 (5.0-9.0)
[2020-10-09] MEDS ORDERED: cefTRIAXone\\ROCEPHIN 1 GM VIAL ONE ×2 (00:20→05:32)
[2020-10-09 01:30] LABS: Troponin I 0.207 ng/mL (< 0.028)
[2020-10-09] MEDS ORDERED: Promethazine HCl 12.5 MG in Sodium Chloride 0.9% 50 ML IVPB PRN (02:34)
[2020-10-09] MEDS ORDERED: Ondansetron PF 4 MG/2 ML Vial IVP PRN (02:34)
[2020-10-09] MEDS ORDERED: hydrALAZINE 20 MG/ML VIAL SLOW IVP PRN (02:34)
[2020-10-09] MEDS ORDERED: cloNIDine 0.1 MG TAB PO PRN (02:34)
[2020-10-09] MEDS ORDERED: Labetalol HCl 100 MG/20 ML VIAL SLOW IVP PRN (02:34)
[2020-10-09] MEDS ORDERED: Acetaminophen 325 MG TAB PO PRN (02:34)
--- NOTE | 2020-10-09 02:38 | PDOC.HHP ---
Hospitalist HPI - History of Present Illness Fall History of Present Illness: Patient is a 65 year old female with PMH COPD, afib, asthma who presents to ED after falling Thursday using her walker doing housework, found by [employer] members. Complained of LLE pain. She struck her knees, fell forward onto her w alker. She has fallen several times before, and was on ground for as long as 2 days. Placed on nasal cannula by EMS for O2sat of 92%. she denies LOC but seems a bit altered/confused during conversation. unsure of baseline. Labs significant for Cr of 3.57, Tbili 1.4, AST 99, CK ~1700, Tni 0.2, UA positive for UTI. XR pelvis without acute findings. XR knees with OA but no fractures or subluxations. CXR clear. Patient has 2+ pedal edema but there is a superimposed erythematous rash on both shins, L>R. Patient to be admitted for further workup and care. Hospitalist ROS - Review of Systems Constitutional: reports: weakness, malaise. denies: fever, chills, sweats, other Eyes: denies: pain, vision change, conjunctivae inflammation, eyelid inflammation, redness, other ENT: denies: ear pain, ear discharge, nose pain, nose discharge, nose congestion, mouth pain, mouth swelling, throat pain, throat swelling, other Respiratory: denies: cough, dry, shortness of breath, hemoptysis, SOB with excertion, pleuritic pain, sputum, wheezing, other Cardiovascular: denies: chest pain, palpitations, orthopnea, paroxysmal noc. dyspnea, edema, light headedness, other Gastrointestinal: denies: nausea, vomiting, abdominal pain, diarrhea, constipation, melena, hematochezia, other Genitourinary: denies: dysuria, frequency, incontinence, hematuria, retention, other Musculoskeletal: reports: leg pain Skin: reports: rash. denies: lesions, heriberto, bruising, other Neurological: denies: weakness, numbness, incoordination, change in speech, confusion, seizures, other All other systems reviewed; all pertinent +/- noted in HPI/Subj - Medication Medications: furosemide oral tablet : Strength - 40 mg : ORAL Patient Dose: 1 tab(s) Oral once a day. buprenorphine-naloxone film : Strength - 2 mg-0.5 mg : SUBLINGUAL Patient Dose: 1 tab(s) Oral 2 times a day. benzonatate capsule : Strength - 100 mg : ORAL Patient Dose: 2 tab(s) Oral every 4 hours prn. ibuprofen tablet : Strength - 800 mg : ORAL Patient Dose: 1 tab(s) Oral 3 times a day. amitriptyline oral tablet : Strength - 100 mg : ORAL Patient Dose: 1 tab(s) Oral 2 times a day. ProAir HFA HFA aerosol inhaler : Strength - 90 mcg : INHALATION Patient Dose: Unknown. potassium chloride oral packet : Strength - 20 mEq : ORAL Patient Dose: 1 tab(s) Oral once a day. Trelegy Ellipta blister with device : Strength - 100 mcg-62.5 mcg-25 mcg/actuation : INHALATION Patient Dose: 1 puff(s) once a day. dilTIAZem oral capsule,extended release 24hr : Strength - 240 mg : ORAL Patient Dose: 1 tab(s) Oral once a day. Eliquis tablet : Strength - 5 mg : ORAL Patient Dose: 5 mg Oral 2 times a day. Multaq tablet : Strength - 400 mg : ORAL Patient Dose: 400 mg Oral 2 times a day. Brovana solution for nebulization : Strength - 15 mcg/2 mL : INHALATION Patient Dose: 1 puff(s) once a day. predniSONE TABLET : Strength - 20 mg : ORAL Patient Dose: 3 Oral See Notes.t 3 tabs po today and then 40mg a day for the next four days. Hospitalist History - Past Medical History Other Medical History: COPD, afib, asthma - Past Surgical History Other Surgical History: carpal tunnel bilateral , hernia repair, Surgical history of appendectomy, Surgical history of section, partially fused left wrist surgery. - Family History Family History: reports: no pertinent history - Social History Smoking Status: Never smoker Alcohol: reports: None Drugs: reports: none - Exam General Appearance: NAD, awake alert Eye: PERRL, anicteric sclera ENT: normocephalic atraumatic, no oropharyngeal lesions, moist mucosa Neck: supple, symmetric, no JVD, no thyromegaly, no lymphadenopathy, no carotid bruit Heart: RRR, no murmur, no gallops, no rubs, normal peripheral pulses Respiratory: CTAB, no wheezes, no rales, no ronchi, normal chest expansion, no tachypnea, normal percussion Gastrointestinal: soft, non-tender, non-distended, normal bowel sounds, no palpable masses, no hepatomegaly, no splenomegaly, no bruit Extremities: no cyanosis, no clubbing, 2+ LE edema Extremities - other findings: erythema of both legs, L>R, no focus of infection, no purulence/induration Skin: normal turgor, no lesions Skin - other findings: bilateral leg rash Neurological: cranial nerve grossly intact, normal sensation to touch, no weakness, no focal deficits, no new deficit Musculoskeletal: normal tone, normal strength, no muscle wasting Psychiatric: normal affect, normal behavior, A&O x 3 Hospitalist Results - Labs Result Diagrams: 10/08/20 19:35 10/08/20 19:35 Lab results: WBC 10.1 thou/uL (4.8-10.8) 10/08/20 19:35 Hgb 11.8 g/dL (12.0-16.0) L 10/08/20 19:35 Hct 35.3 % (36.0-47.0) L 10/08/20 19:35 MCV 93.4 fL (78.0-98.0) 10/08/20 19:35 Plt Count 139 thou/uL (130-400) 10/08/20 19:35 Neutrophils % 78.4 % (42.0-75.0) H 10/08/20 19:35 Sodium 141 mmol/L (136-145) 10/08/20 19:35 Potassium 3.6 mmol/L (3.5-5.1) 10/08/20 19:35 Chloride 93 mmol/L (98-107) L 10/08/20 19:35 Carbon Dioxide 31 mmol/L (23-31) 10/08/20 19:35 BUN 59 mg/dL (9.8-20.1) H 10/08/20 19:35 Creatinine 3.57 mg/dL (0.6-1.1) H 10/08/20 19:35 Glucose 114 mg/dL (80-115) 10/08/20 19:35 Calcium 7.9 mg/dL (7.8-10.44) 10/08/20 19:35 Total Bilirubin 1.4 mg/dL (0.2-1.2) H 10/08/20 19:35 AST 99 U/L (5-34) H 10/08/20 19:35 ALT 44 U/L (8-55) 10/08/20 19:35 Alkaline Phosphatase 82 U/L (40-110) 10/08/20 19:35 Creatine Kinase 1682 U/L (29-168) H 10/08/20 19:35 CK-MB (CK-2) 6.3 ng/mL (0-6.6) 10/08/20 19:35 Troponin I 0.207 ng/mL (< 0.028) H 10/09/20 00:50 Serum Total Protein 5.9 g/dL (6.0-8.3) L 10/08/20 19:35 Albumin 3.7 g/dL (3.4-4.8) 10/08/20 19:35 Urine Ketones Negative mg/dL (Negative) 10/08/20 22:37 Urine Blood 1+ (Negative) A 10/08/20 22:37 Urine Nitrite Negative (Negative) 10/08/20 22:37 Ur Leukocyte Esterase 250 Eric/uL (Negative) A 10/08/20 22:37 Urine RBC 0-3 HPF (0-3) 10/08/20 22:37 Urine WBC 7-10 HPF (0-3) A 10/08/20 22:37 Ur Squamous Epith Cells 11-20 HPF (0-3) A 10/08/20 22:37 Urine Bacteria 3+ HPF (None Seen) A 10/08/20 22:37 Additional comment: VITAL SIGNS ThuOct 09, 2020 00:31 OFE Gutierrez, [place] BP: 102/81 Pulse: 84 Resp: 18 Pain: 4 O2 sat: 99 on (2L Oxygen) Time: 10/09/2020 00:31. Hospitalist H&P A/P - Plan Plan: Patient is a 65 year old female with PMH COPD, afib, asthma who presents to ED after falling Thursday using her walker doing housework. # fall # rhabdomyolysis - presume due to being on floor for prolonged period of time - admit to telemetry - IVF and lasix to flush out muscle degredation products. trend CK daily # UTI # metabolic encephalopathy/delirium- start ceftriaxone, follow urine culture UA positive for UTI. # possible cellulitis - ddx cellulitis of both lower extremities or venous stasis changes XR pelvis without acute findings. XR knees with OA but no fractures or subluxations. CXR clear. Patient has 2+ pedal edema but there is a superimposed erythematous rash on both shins, L>R. Patient to be admitted for further workup and care. - start vancomycin, follow cultures # acutre renal failure: labs significant for Cr of 3.57, baseline is 1.5-2.0 possibly related to rhabdomyolysis or dehydation after being on floor, continue IVF and lasix # elevated LFTs -120Tbili 1.4, AST 99, associated with rhabdomyolsysis frequently, trend LFTs
[2020-10-09] MEDS ORDERED: Electrolyte Replacement Protocol 1 EACH FS SCH (02:45)
[2020-10-09] MEDS ORDERED: Sodium Chloride 0.9% 1,000 ML IV SCH (03:00)
[2020-10-09] MEDS ORDERED: cefTRIAXone\\ROCEPHIN 1 GM in Sodium Chloride 0.9% 100 ML IVPB SCH (03:00)
[2020-10-09 05:32] LABS: Troponin I 0.187 ng/mL (< 0.028)
[2020-10-09] MEDS ORDERED: cefTRIAXone\\ROCEPHIN 2 GM VIAL ONE (05:32)
[2020-10-09 05:36] LABS: Anion Gap 15 mmol/L (10-20); BUN (Urea Nitrogen) 55 mg/dL (9.8-20.1); CK (CPK) 1312 U/L (29-168); Calc. Creatinine Clearance 0 mL/min (70-130); Calcium 7.6 mg/dL (7.8-10.44); Carbon Dioxide 31 mmol/L (23-31); Chloride 95 mmol/L (98-107); Glucose 104 mg/dL (80-115); Magnesium 1.2 mg/dL (1.6-2.6); Potassium 3.1 mmol/L (3.5-5.1); Sodium 138 mmol/L (136-145)
[2020-10-09] MEDS: Morphine 2 MG/ML VIAL SLOW IVP PRN ×3 (06:17→23:40)
[2020-10-09] MEDS ORDERED: Morphine 2 MG/ML VIAL ONE (06:19)
--- NOTE | 2020-10-09 06:59 | CT ---
CT ABDOMEN AND PELVIS WITHOUT IV CONTRAST CT REFORMATTED IMAGES OF THE LUMBAR SPINE IN SAGITTAL AND CORONAL PLANE: Date: 10/08/2020 INDICATION: 65-year-old female status post fall with midline abdominal pain. COMPARISON: None. FINDINGS: There are areas of subsegmental volume loss involving both lower lobes. There is moderate cardiomegal y. There is layered density within the gallbladder. Unopacified liver, adrenal glands, and spleen appear within normal limits. There is fatty infiltratio n of the pancreas. Unopacified kidneys are unremarkable appearing. No hydronephrosis is evident. There are moderate calcifications involving the abdominopelvic vasculature. There is moderate distention of the bladder. There is a fibroid uterus. There is scattered colonic di verticula. The small bowel is of normal caliber. The appendix is not definitely seen. No free fluid is evident. There is diffuse osteopenia. There are multiple healed rib deformities involving the posterior left ninth and anterolateral left n inth rib, anterior left eighth, anterolateral seventh, and anterolateral sixth rib. There is healed d eformity involving the posterior seventh and eighth ribs. There is healing deformity involving the ri ght twelfth rib head and the anterolateral aspect of the T10 vertebral body. IMPRESSION: 1. Healing anterolateral left sixth through ninth rib fractures. Remote healed posterior left ninth and tenth ribs. There is a healed right posterolateral eighth rib fracture. There is a healing right twelfth rib head fracture. 2. Cardiomegaly. 3. Layered density in gallbladder suspicious for small stones or gallbladder sludge. 4. Colonic diverticulosis. 5. Fibroid uterus. 6. Moderate distention of the bladder. POS: BH
[2020-10-09] MEDS ORDERED: Furosemide 40 MG TAB ONE ×2 (10:03→15:09)
[2020-10-09] MEDS: Famotidine 20 MG TAB PO SCH (10:04)
[2020-10-09] MEDS: Furosemide 40 MG TAB PO SCH ×2 (10:04→15:11)
[2020-10-09] MEDS: Polyethylene Glycol 3350 17 GM Packet PO SCH (10:18)
[2020-10-09] MEDS ORDERED: Morphine 4 MG/ML VIAL ONE (11:25)
[2020-10-09 12:30] LABS: SARS-CoV-2 MS2 Positive; SARS-CoV-2 N Gene Negative; SARS-CoV-2 S Gene Negative; SARS-CoV-2 by NAA Not Detected (NotDetected); SARS-CoV-2 orf1ab Negative
[2020-10-09] MEDS ORDERED: HYDROcodone/Acetaminophen 5/325 mg Tablet ONE (15:09)
[2020-10-09] MEDS: HYDROcodone/Acetaminophen 5/325 mg Tablet PO PRN (15:11)
[2020-10-09 16:25] VITALS: BMI 39.0
[2020-10-10] MEDS ORDERED: cefTRIAXone\\ROCEPHIN 1 GM in Sodium Chloride 0.9% 100 ML IVPB SCH (03:00)
[2020-10-10] MEDS: Morphine 2 MG/ML VIAL SLOW IVP PRN ×3 (03:18→17:47)
[2020-10-10] MEDS ORDERED: Vancomycin 1 GM in Premix Bag 1 BAG IVPB SCH ×2 (05:00→08:00)
[2020-10-10 06:03] LABS: Vancomycin, Random 14.9 ug/mL (See Comment)
[2020-10-10 06:07] LABS: Anion Gap 18 mmol/L (10-20); BUN (Urea Nitrogen) 51 mg/dL (9.8-20.1); CK (CPK) 991 U/L (29-168); Calc. Creatinine Clearance 40 mL/min (70-130); Calcium 7.4 mg/dL (7.8-10.44); Carbon Dioxide 25 mmol/L (23-31); Chloride 96 mmol/L (98-107); Glucose 90 mg/dL (80-115); Magnesium 1.1 mg/dL (1.6-2.6); Potassium 3.2 mmol/L (3.5-5.1); Sodium 136 mmol/L (136-145)
[2020-10-10 06:50] LABS: #Eosinphils 0.1 thou/uL (0.0-0.7); #Lymphocytes 1.5 thou/uL (1.20-3.40); #Monocytes 0.9 thou/uL (0.11-0.59); %Basophils 0.2 % (0.0-1.0); %Eosinophils 1.2 % (0.0-10.0); %Lymphocytes 17.7 % (21.0-51.0); %Monocytes 10.1 % (0.0-10.0); %Neutrophils 70.8 % (42.0-75.0); Hemoglobin 11.8 g/dL (12.0-16.0); Mean Corpuscular HGB CONC 34.5 g/dL (32.0-36.0); Mean Corpuscular Volume 95.6 fL (78.0-98.0); Mean Platelet Volume 8.7 fL (7.4-10.4); Platelet Count 101 thou/uL (130-400); Platelet Morphology Comment Appears Decreased; RBC Distribution Width 12.5 % (11.5-14.5); Red Blood Cell (RBC) Count 3.58 mill/uL (4.20-5.40); White Blood Cell (WBC) Count 8.5 thou/uL (4.8-10.8)
[2020-10-10] MEDS: HYDROcodone/Acetaminophen 5/325 mg Tablet PO PRN ×2 (08:39→15:01)
[2020-10-10] MEDS: Furosemide 40 MG TAB PO SCH ×2 (08:39→15:01)
[2020-10-10] MEDS: Famotidine 20 MG TAB PO SCH (08:39)
[2020-10-10] MEDS: Polyethylene Glycol 3350 17 GM Packet PO SCH (08:55)
[2020-10-10] MEDS ORDERED: FLU VACC QS2020-21(6MOS UP)/PF 60 MCG/0.5 ML SYRINGE IM ONE (09:00)
--- NOTE | 2020-10-10 16:32 | PDOC.HOSPP ---
- Subjective Encounter Date: 10/10/20 Subjective: The patient was seen and examined. She is complaining of generalized body aches. - Objective Vital Signs & Weight: Vital Signs (12 hours) Temp Pulse Resp BP Pulse Ox 10/10/20 11:17 97.7 F 74 20 114/66 96 10/10/20 08:40 99 10/10/20 07:27 97.8 F 85 20 132/84 99 Weight Weight 242 lb 2 oz I&O: 10/09/20 10/10/20 10/11/20 06:59 06:59 06:59 Intake Total 360 Balance 360 Result Diagrams: 10/10/20 05:33 10/10/20 05:33 Hospitalist ROS - Medication Medications: Active Medications Generic Name Dose Route Start Last Admin Trade Name Freq PRN Reason Stop Dose Admin Hydrocodone Bitart/Acetaminophen 1 tab 10/09/20 02:34 10/10/20 15:01 Hydrocodone/Acetaminophen 5/325 Mg Tablet PO 1 tab Q4H PRN Administration Moderate Pain (4-6) Famotidine 20 mg 10/09/20 09:00 10/10/20 08:39 Famotidine 20 Mg Tab PO 20 mg Q24HR KRYSTIN Administration Furosemide 40 mg 10/09/20 09:00 10/10/20 15:01 Furosemide 40 Mg Tab PO 40 mg 0900,1400 KRYSTIN Administration Morphine Sulfate 2 mg 10/09/20 02:34 10/10/20 11:59 Morphine 2 Mg/Ml Vial SLOW IVP 2 mg Q4H PRN Administration Severe Pain (7-10) Polyethylene Glycol 17 gm 10/09/20 09:00 10/10/20 08:55 Polyethylene Glycol 3350 17 Gm Packet PO Not Given DAILY KRYSTIN - Exam General Appearance: awake alert ENT: normocephalic atraumatic Neck: supple Heart: RRR Respiratory: normal chest expansion, no tachypnea Gastrointestinal: soft, distended Extremities: no cyanosis, no clubbing Hosp A/P (1) Acute renal failure Status: Acute (2) Rhabdomyolysis Code(s): M62.82 - RHABDOMYOLYSIS Status: Acute (3) UTI (urinary tract infection) Status: Acute (4) Obesity Code(s): E66.9 - OBESITY, UNSPECIFIED Status: Chronic Qualifiers: Obesity classification: adult class 3 (BMI >= 40) Body mass index: BMI 40.0-44.9 - Plan The patient does not have any signs of sepsis. Her urine culture is negative so far. Discontinue IV antibiotics. Her creatinine level and CPK are improving. I will hold diuresis. Continue to monitor the patient for the next 24 hours and if her numbers do not improve we will consider adding IV fluids. PT and OT evaluation.
[2020-10-11 06:19] LABS: Anion Gap 20 mmol/L (10-20); BUN (Urea Nitrogen) 42 mg/dL (9.8-20.1); CK (CPK) 721 U/L (29-168); Calc. Creatinine Clearance 62 mL/min (70-130); Calcium 7.8 mg/dL (7.8-10.44); Carbon Dioxide 32 mmol/L (23-31); Chloride 91 mmol/L (98-107); Glucose 111 mg/dL (80-115); Sodium 140 mmol/L (136-145)
[2020-10-11 06:22] LABS: Magnesium 0.9 mg/dL (1.6-2.6); Potassium 2.6 mmol/L (3.5-5.1)
[2020-10-11] MEDS: Morphine 2 MG/ML VIAL SLOW IVP PRN ×2 (06:33→15:37)
[2020-10-11] MEDS ORDERED: Potassium Chloride 20 MEQ TAB PO SCH ×2 (07:15→10:15)
[2020-10-11] MEDS: Famotidine 20 MG TAB PO SCH (08:13)
[2020-10-11] MEDS: Polyethylene Glycol 3350 17 GM Packet PO SCH (08:14)
[2020-10-11] MEDS: HYDROcodone/Acetaminophen 5/325 mg Tablet PO PRN ×2 (11:12→21:12)
[2020-10-11 14:38] LABS: Anion Gap 17 mmol/L (10-20); BUN (Urea Nitrogen) 42 mg/dL (9.8-20.1); Calc. Creatinine Clearance 61 mL/min (70-130); Calcium 7.7 mg/dL (7.8-10.44); Carbon Dioxide 34 mmol/L (23-31); Chloride 91 mmol/L (98-107); Glucose 114 mg/dL (80-115); Sodium 139 mmol/L (136-145)
[2020-10-11 14:43] LABS: Potassium 2.7 mmol/L (3.5-5.1)
--- NOTE | 2020-10-11 16:45 | PDOC.HOSPP ---
- Subjective Encounter Date: 10/11/20 Subjective: The patient still complaining of generalized pain. Otherwise, no new complaints. - Objective Vital Signs & Weight: Vital Signs (12 hours) Temp Pulse Pulse Resp BP BP BP 10/11/20 10:23 87 117/80 10/11/20 08:15 10/11/20 07:59 98.2 F 127 H 18 126/82 10/11/20 05:56 98.4 F 78 18 142/90 H Pulse Ox 10/11/20 10:23 10/11/20 08:15 96 10/11/20 07:59 96 10/11/20 05:56 94 L Weight Weight 242 lb 2 oz I&O: 10/10/20 10/11/20 10/12/20 06:59 06:59 06:59 Intake Total 360 Output Total 1300 Balance 360 -1300 Result Diagrams: 10/10/20 05:33 10/11/20 13:21 Hospitalist ROS - Medication Medications: Active Medications Generic Name Dose Route Start Last Admin Trade Name Freq PRN Reason Stop Dose Admin Hydrocodone Bitart/Acetaminophen 1 tab 10/09/20 02:34 10/11/20 11:12 Hydrocodone/Acetaminophen 5/325 Mg Tablet PO 1 tab Q4H PRN Administration Moderate Pain (4-6) Famotidine 20 mg 10/09/20 09:00 10/11/20 08:13 Famotidine 20 Mg Tab PO 20 mg Q24HR KRYSTIN Administration Furosemide 40 mg 10/09/20 09:00 10/10/20 15:01 Furosemide 40 Mg Tab PO 40 mg 0900,1400 KRYSTIN Administration Morphine Sulfate 2 mg 10/09/20 02:34 10/11/20 15:37 Morphine 2 Mg/Ml Vial SLOW IVP 2 mg Q4H PRN Administration Severe Pain (7-10) Polyethylene Glycol 17 gm 10/09/20 09:00 10/11/20 08:14 Polyethylene Glycol 3350 17 Gm Packet PO Not Given DAILY KRYSTIN - Exam ENT: normocephalic atraumatic Neck: supple, no JVD Respiratory: normal chest expansion, no tachypnea Gastrointestinal: soft Neurological: cranial nerve grossly intact, no focal deficits Hosp A/P (1) Acute renal failure Status: Acute (2) Rhabdomyolysis Code(s): M62.82 - RHABDOMYOLYSIS Status: Acute (3) UTI (urinary tract infection) Status: Acute (4) Obesity Code(s): E66.9 - OBESITY, UNSPECIFIED Status: Chronic Qualifiers: Obesity classification: adult class 3 (BMI >= 40) Body mass index: BMI 40.0-44.9 (5) Hypokalemia Code(s): E87.6 - HYPOKALEMIA Status: Acute (6) Hypomagnesemia Code(s): E83.42 - HYPOMAGNESEMIA Status: Acute - Plan The patient does not have any signs of sepsis. Her urine culture is negative so far. Discontinue IV antibiotics. Her creatinine level and CPK are improving. Diuretics on hold. Severe hypokalemia related to diuresis and hypomagnesemia. Replace both electrolytes. PT and OT evaluation.
[2020-10-11] MEDS: Potassium Chloride 20 MEQ TAB PO SCH ×2 (17:11→21:12)
[2020-10-11] MEDS ORDERED: Magnesium Sulfate 4 GM in Sodium Chloride 0.9% 250 ML 250 ML IVPB SCH (17:15)
[2020-10-12] MEDS: Morphine 2 MG/ML VIAL SLOW IVP PRN ×2 (06:00→15:10)
[2020-10-12 06:14] LABS: #Eosinphils 0.1 thou/uL (0.0-0.7); #Lymphocytes 1.4 thou/uL (1.20-3.40); #Monocytes 0.8 thou/uL (0.11-0.59); #Neutrophils 5.2 thou/uL (1.40-6.50); %Basophils 0.5 % (0.0-1.0); %Eosinophils 1.7 % (0.0-10.0); %Lymphocytes 18.3 % (21.0-51.0); %Monocytes 10.2 % (0.0-10.0); %Neutrophils 69.3 % (42.0-75.0); Hemoglobin 13.1 g/dL (12.0-16.0); Mean Corpuscular HGB CONC 32.8 g/dL (32.0-36.0); Mean Corpuscular Hemoglobin 31.5 pg (27.0-31.0); Mean Corpuscular Volume 96.3 fL (78.0-98.0); Mean Platelet Volume 8.2 fL (7.4-10.4); Platelet Count 165 thou/uL (130-400); RBC Distribution Width 13.1 % (11.5-14.5); Red Blood Cell (RBC) Count 4.14 mill/uL (4.20-5.40); White Blood Cell (WBC) Count 7.5 thou/uL (4.8-10.8)
[2020-10-12 06:38] LABS: Anion Gap 18 mmol/L (10-20); BUN (Urea Nitrogen) 33 mg/dL (9.8-20.1); Calc. Creatinine Clearance 77 mL/min (70-130); Carbon Dioxide 28 mmol/L (23-31); Chloride 94 mmol/L (98-107); Glucose 113 mg/dL (80-115); Potassium 3.3 mmol/L (3.5-5.1); Sodium 137 mmol/L (136-145)
[2020-10-12] MEDS: Polyethylene Glycol 3350 17 GM Packet PO SCH (09:08)
[2020-10-12] MEDS: Famotidine 20 MG TAB PO SCH (09:17)
[2020-10-12] MEDS: HYDROcodone/Acetaminophen 5/325 mg Tablet PO PRN ×2 (09:18→20:05)
[2020-10-12] MEDS ORDERED: Potassium Chloride 20 MEQ TAB PO SCH (10:15)
--- NOTE | 2020-10-12 14:48 | PDOC.HOSPP ---
- Subjective Encounter Date: 10/12/20 Subjective: The patient is generally weak and unable to mobilize safely without assistance. - Objective Vital Signs & Weight: Vital Signs (12 hours) Temp Pulse Resp BP Pulse Ox 10/12/20 13:55 85 18 96 10/12/20 08:13 97.9 F 93 24 H 112/77 92 L 10/12/20 08:00 92 L Weight Weight 242 lb 2 oz I&O: 10/11/20 10/12/20 10/13/20 06:59 06:59 06:59 Output Total 1300 Balance -1300 Result Diagrams: 10/12/20 06:07 10/12/20 06:07 Hospitalist ROS - Medication Medications: Active Medications Generic Name Dose Route Start Last Admin Trade Name Freq PRN Reason Stop Dose Admin Hydrocodone Bitart/Acetaminophen 1 tab 10/09/20 02:34 10/12/20 09:18 Hydrocodone/Acetaminophen 5/325 Mg Tablet PO 1 tab Q4H PRN Administration Moderate Pain (4-6) Albuterol/Ipratropium 3 ml 10/09/20 02:34 10/12/20 13:55 Ipratropium/Albuterol Sulfate 3 Ml Neb NEB 3 ml [id number] PRN Administration SOB &/or Wheezing Famotidine 20 mg 10/09/20 09:00 10/12/20 09:17 Famotidine 20 Mg Tab PO 20 mg Q24HR KRYSTIN Administration Furosemide 40 mg 10/09/20 09:00 10/10/20 15:01 Furosemide 40 Mg Tab PO 40 mg 0900,1400 KRYSTIN Administration Morphine Sulfate 2 mg 10/09/20 02:34 10/12/20 06:00 Morphine 2 Mg/Ml Vial SLOW IVP 2 mg Q4H PRN Administration Severe Pain (7-10) Polyethylene Glycol 17 gm 10/09/20 09:00 10/12/20 09:08 Polyethylene Glycol 3350 17 Gm Packet PO Not Given DAILY KRYSTIN - Exam General Appearance: awake alert ENT: normocephalic atraumatic Neck: supple, no JVD Heart: RRR Respiratory: no tachypnea Extremities: no cyanosis, no clubbing, 1+ LE edema Hosp A/P (1) Acute renal failure Status: Acute (2) Rhabdomyolysis Code(s): M62.82 - RHABDOMYOLYSIS Status: Acute (3) UTI (urinary tract infection) Status: Acute (4) Obesity Code(s): E66.9 - OBESITY, UNSPECIFIED Status: Chronic Qualifiers: Obesity classification: adult class 3 (BMI >= 40) Body mass index: BMI 40.0-44.9 (5) Hypokalemia Code(s): E87.6 - HYPOKALEMIA Status: Acute (6) Hypomagnesemia Code(s): E83.42 - HYPOMAGNESEMIA Status: Acute - Plan The patient does not have any signs of sepsis. Her urine culture is negative so far. Discontinue IV antibiotics. Her creatinine level and CPK are improving. Diuretics on hold. Severe hypokalemia related to diuresis and hypomagnesemia. Magnesium has been replaced yesterday. Potassium level is better but still below the normal level. Replace potassium. Continue PT and OT. Pending placement.
[2020-10-13] MEDS: HYDROcodone/Acetaminophen 5/325 mg Tablet PO PRN ×3 (04:26→17:58)
[2020-10-13 06:52] LABS: #Eosinphils 0.2 thou/uL (0.0-0.7); #Lymphocytes 0.9 thou/uL (1.20-3.40); #Monocytes 0.6 thou/uL (0.11-0.59); #Neutrophils 4.5 thou/uL (1.40-6.50); %Basophils 0.3 % (0.0-1.0); %Eosinophils 2.7 % (0.0-10.0); %Lymphocytes 15.2 % (21.0-51.0); %Monocytes 9.3 % (0.0-10.0); %Neutrophils 72.6 % (42.0-75.0); Hemoglobin 11.5 g/dL (12.0-16.0); Mean Corpuscular HGB CONC 32.7 g/dL (32.0-36.0); Mean Corpuscular Hemoglobin 31.7 pg (27.0-31.0); Mean Corpuscular Volume 96.9 fL (78.0-98.0); Mean Platelet Volume 7.9 fL (7.4-10.4); Platelet Count 167 thou/uL (130-400); Red Blood Cell (RBC) Count 3.62 mill/uL (4.20-5.40); White Blood Cell (WBC) Count 6.2 thou/uL (4.8-10.8)
[2020-10-13 07:10] LABS: Anion Gap 16 mmol/L (10-20); BUN (Urea Nitrogen) 29 mg/dL (9.8-20.1); Calc. Creatinine Clearance 86 mL/min (70-130); Calcium 8.3 mg/dL (7.8-10.44); Carbon Dioxide 31 mmol/L (23-31); Chloride 96 mmol/L (98-107); Glucose 107 mg/dL (80-115); Potassium 3.5 mmol/L (3.5-5.1); Sodium 139 mmol/L (136-145)
[2020-10-13] MEDS ORDERED: Bumetanide 1 MG/4 ML VIAL IVP SCH (10:00)
[2020-10-13] MEDS: Polyethylene Glycol 3350 17 GM Packet PO SCH (10:51)
[2020-10-13] MEDS: Famotidine 20 MG TAB PO SCH (10:51)
--- NOTE | 2020-10-13 15:24 | PDOC.HOSPP ---
- Subjective Encounter Date: 10/13/20 Subjective: The patient is complaining of pain on both of her sides and lower extremities. - Objective Vital Signs & Weight: Vital Signs (12 hours) Temp Pulse Resp BP Pulse Ox 10/13/20 08:06 98.7 F 97 18 124/84 100 10/13/20 08:00 100 Weight Weight 242 lb 2 oz Result Diagrams: 10/13/20 06:30 10/13/20 06:30 Hospitalist ROS - Medication Medications: Active Medications Generic Name Dose Route Start Last Admin Trade Name Freq PRN Reason Stop Dose Admin Hydrocodone Bitart/Acetaminophen 1 tab 10/09/20 02:34 10/13/20 10:50 Hydrocodone/Acetaminophen 5/325 Mg Tablet PO 1 tab Q4H PRN Administration Moderate Pain (4-6) Albuterol/Ipratropium 3 ml 10/09/20 02:34 10/12/20 13:55 Ipratropium/Albuterol Sulfate 3 Ml Neb NEB 3 ml [id number] PRN Administration SOB &/or Wheezing Famotidine 20 mg 10/09/20 09:00 10/13/20 10:51 Famotidine 20 Mg Tab PO 20 mg Q24HR KRYSTIN Administration Morphine Sulfate 2 mg 10/09/20 02:34 10/12/20 15:10 Morphine 2 Mg/Ml Vial SLOW IVP 2 mg Q4H PRN Administration Severe Pain (7-10) Polyethylene Glycol 17 gm 10/09/20 09:00 10/13/20 10:51 Polyethylene Glycol 3350 17 Gm Packet PO Not Given DAILY KRYSTIN Sodium Chloride 10 ml 10/12/20 21:00 10/13/20 10:52 Flush - Normal Saline 10 Ml Syringe IVF 10 ml Q12HR KRYSTIN Administration - Exam General Appearance: awake alert ENT: normocephalic atraumatic Neck: supple, no JVD Respiratory: normal chest expansion, no tachypnea Extremities: no cyanosis, no clubbing Neurological: cranial nerve grossly intact Hosp A/P (1) Acute renal failure Status: Acute (2) Rhabdomyolysis Code(s): M62.82 - RHABDOMYOLYSIS Status: Acute (3) UTI (urinary tract infection) Status: Acute (4) Obesity Code(s): E66.9 - OBESITY, UNSPECIFIED Status: Chronic Qualifiers: Obesity classification: adult class 3 (BMI >= 40) Body mass index: BMI 40.0-44.9 (5) Hypokalemia Code(s): E87.6 - HYPOKALEMIA Status: Acute (6) Hypomagnesemia Code(s): E83.42 - HYPOMAGNESEMIA Status: Acute - Plan The patient does not have any signs of sepsis. Her urine culture is negative so far. IV antibiotics discontinued. Her creatinine level and CPK are improving. Diuretics restarted due to edema. Severe hypokalemia related to diuresis and hypomagnesemia. Electrolytes have been replaced. Continue PT and OT. Pending placement.
--- NOTE | 2020-10-13 16:51 | EKG ---
Test Reason : Blood Pressure : / mmHG Vent. Rate : 086 BPM Atrial Rate : 086 BPM P-R Int : 150 ms QRS Dur : 092 ms QT Int : 422 ms P-R-T Axes : 061 -16 042 degrees QTc Int : 504 ms Normal sinus rhythm Abnormal ECG Confirmed by MAXIMILIANO EDWARDS ([id number]), editor in chief newspaper MG FAULKNER ([id number]) on 10/13/2020 4:51:11 PM Referred By: Confirmed By:MAXIMILIANO Gutierrez
[2020-10-14] MEDS: HYDROcodone/Acetaminophen 5/325 mg Tablet PO PRN ×2 (05:28→10:10)
[2020-10-14 05:51] LABS: Anion Gap 17 mmol/L (10-20); BUN (Urea Nitrogen) 23 mg/dL (9.8-20.1); Calc. Creatinine Clearance 93 mL/min (70-130); Calcium 8.4 mg/dL (7.8-10.44); Carbon Dioxide 26 mmol/L (23-31); Chloride 94 mmol/L (98-107); Glucose 95 mg/dL (80-115); Potassium 3.5 mmol/L (3.5-5.1); Sodium 133 mmol/L (136-145)
[2020-10-14 07:11] LABS: #Eosinphils 0.2 thou/uL (0.0-0.7); #Lymphocytes 1.1 thou/uL (1.20-3.40); #Monocytes 0.6 thou/uL (0.11-0.59); #Neutrophils 3.8 thou/uL (1.40-6.50); %Basophils 0.2 % (0.0-1.0); %Eosinophils 2.7 % (0.0-10.0); %Lymphocytes 19.7 % (21.0-51.0); %Monocytes 10.3 % (0.0-10.0); %Neutrophils 67.1 % (42.0-75.0); Hemoglobin 11.3 g/dL (12.0-16.0); Mean Corpuscular HGB CONC 31.9 g/dL (32.0-36.0); Mean Corpuscular Hemoglobin 31.1 pg (27.0-31.0); Mean Corpuscular Volume 97.6 fL (78.0-98.0); Mean Platelet Volume 8.7 fL (7.4-10.4); Platelet Count 142 thou/uL (130-400); RBC Distribution Width 13.3 % (11.5-14.5); Red Blood Cell (RBC) Count 3.63 mill/uL (4.20-5.40); White Blood Cell (WBC) Count 5.7 thou/uL (4.8-10.8)
[2020-10-14] MEDS: Lidocaine 5% Patch TD SCH (08:35)
[2020-10-14] MEDS: Polyethylene Glycol 3350 17 GM Packet PO SCH (08:36)
[2020-10-14] MEDS: Bumetanide 1 MG/4 ML VIAL IVP SCH (08:40)
[2020-10-14] MEDS: Famotidine 20 MG TAB PO SCH (08:40)
--- NOTE | 2020-10-14 18:01 | PDOC.HOSPP ---
- Subjective Encounter Date: 10/14/20 Subjective: The patient is resting in her bed. Continues to feel better. - Objective Vital Signs & Weight: Vital Signs (12 hours) Temp Pulse Resp BP Pulse Ox 10/14/20 08:00 94 L 10/14/20 07:48 97.7 F 81 18 118/74 94 L Weight Weight 242 lb 2 oz I&O: 10/13/20 10/14/20 10/15/20 06:59 06:59 06:59 Output Total 650 Balance -650 Result Diagrams: 10/14/20 06:45 10/14/20 05:24 Hospitalist ROS - Medication Medications: Active Medications Generic Name Dose Route Start Last Admin Trade Name Freq PRN Reason Stop Dose Admin Hydrocodone Bitart/Acetaminophen 1 tab 10/09/20 02:34 10/14/20 10:10 Hydrocodone/Acetaminophen 5/325 Mg Tablet PO 1 tab Q4H PRN Administration Moderate Pain (4-6) Albuterol/Ipratropium 3 ml 10/09/20 02:34 10/12/20 13:55 Ipratropium/Albuterol Sulfate 3 Ml Neb NEB 3 ml [id number] PRN Administration SOB &/or Wheezing Bumetanide 1 mg 10/14/20 09:00 10/14/20 08:40 Bumetanide 1 Mg/4 Ml Vial IVP 1 mg DAILY KRYSTIN Administration Famotidine 20 mg 10/09/20 09:00 10/14/20 08:40 Famotidine 20 Mg Tab PO 20 mg Q24HR KRYSTIN Administration Lidocaine 1 patch 10/14/20 09:00 10/14/20 08:35 Lidocaine 5% Patch TD 1 patch DAILY KRYSTIN Administration Morphine Sulfate 2 mg 10/09/20 02:34 10/12/20 15:10 Morphine 2 Mg/Ml Vial SLOW IVP 2 mg Q4H PRN Administration Severe Pain (7-10) Polyethylene Glycol 17 gm 10/09/20 09:00 10/14/20 08:36 Polyethylene Glycol 3350 17 Gm Packet PO Not Given DAILY KRYSTIN Sodium Chloride 10 ml 10/12/20 21:00 10/14/20 08:36 Flush - Normal Saline 10 Ml Syringe IVF 10 ml Q12HR KRYSTIN Administration - Exam General Appearance: awake alert ENT: normocephalic atraumatic Neck: supple Heart: RRR Respiratory: normal chest expansion, no tachypnea Gastrointestinal: soft Extremities: 1+ LE edema Hosp A/P (1) Acute renal failure Status: Acute (2) Rhabdomyolysis Code(s): M62.82 - RHABDOMYOLYSIS Status: Acute (3) UTI (urinary tract infection) Status: Acute (4) Obesity Code(s): E66.9 - OBESITY, UNSPECIFIED Status: Chronic Qualifiers: Obesity classification: adult class 3 (BMI >= 40) Body mass index: BMI 40.0-44.9 (5) Hypokalemia Code(s): E87.6 - HYPOKALEMIA Status: Acute (6) Hypomagnesemia Code(s): E83.42 - HYPOMAGNESEMIA Status: Acute - Plan The patient does not have any signs of sepsis. Her urine culture is negative so far. IV antibiotics discontinued. Renal failure and rhabdomyolysis resolved. Tolerating diuresis. Hypokalemia and hypoglycemia improved with replacement. Continue PT and OT. Pending placement.
[2020-10-14] MEDS ORDERED: Lidocaine Patch Removal 1 EACH TOP SCH (21:00)
[2020-10-15 05:53] LABS: #Eosinphils 0.2 thou/uL (0.0-0.7); #Lymphocytes 1.3 thou/uL (1.20-3.40); #Monocytes 0.6 thou/uL (0.11-0.59); #Neutrophils 3.2 thou/uL (1.40-6.50); %Basophils 0.5 % (0.0-1.0); %Eosinophils 3.5 % (0.0-10.0); %Lymphocytes 25.1 % (21.0-51.0); %Monocytes 10.6 % (0.0-10.0); %Neutrophils 60.3 % (42.0-75.0); Hemoglobin 11.2 g/dL (12.0-16.0); Mean Corpuscular HGB CONC 32.1 g/dL (32.0-36.0); Mean Corpuscular Hemoglobin 31.2 pg (27.0-31.0); Mean Corpuscular Volume 97.4 fL (78.0-98.0); Mean Platelet Volume 7.9 fL (7.4-10.4); Platelet Count 186 thou/uL (130-400); RBC Distribution Width 13.4 % (11.5-14.5); Red Blood Cell (RBC) Count 3.58 mill/uL (4.20-5.40); White Blood Cell (WBC) Count 5.3 thou/uL (4.8-10.8)
[2020-10-15 06:18] LABS: Anion Gap 14 mmol/L (10-20); BUN (Urea Nitrogen) 25 mg/dL (9.8-20.1); Calc. Creatinine Clearance 89 mL/min (70-130); Calcium 8.7 mg/dL (7.8-10.44); Carbon Dioxide 35 mmol/L (23-31); Chloride 92 mmol/L (98-107); Glucose 91 mg/dL (80-115); Sodium 138 mmol/L (136-145)
[2020-10-15 08:10] VITALS: TEMP 97.8
[2020-10-15] MEDS: Famotidine 20 MG TAB PO SCH (08:42)
[2020-10-15] MEDS: Polyethylene Glycol 3350 17 GM Packet PO SCH (08:43)
[2020-10-15] MEDS: Lidocaine 5% Patch TD SCH (08:43)
[2020-10-15] MEDS: HYDROcodone/Acetaminophen 5/325 mg Tablet PO PRN (08:50)
[2020-10-15] MEDS: Bumetanide 1 MG/4 ML VIAL IVP SCH (09:00)
--- NOTE | 2020-10-15 13:13 | PDOC.DS.DS ---
Provider - Provider Date of Admission: 10/08/20 23:23 Date of Discharge: 10/15/20 Admitting Provider: Isidro Lentz MD Primary Care Physician: Unknown Course - Hospital Course Hospital Course: Discharge diagnosis: 1. Acute kidney injury 2. Rhabdomyolysis 3. Hypokalemia 4. Hyponatremia 5. Urinary tract infection 6. Acute metabolic encephalopathy 7. Physical deconditioning Hospital course: Patient is a pleasant 65-year-old lady who was admitted to the hospital on October 08, 2020 for acute metabolic encephalopathy, acute kidney injury and rhabdomyolysis. She was treated for probable urinary tract infection. Antibiotics were discontinued after final urine culture did not show any growth. Acute kidney injury also resolved. She was seen by therapy services. She was recommended inpatient rehab versus [facility]. She has been accepted to [facility] and is being discharged in a stable condition. Many thanks for allowing me to participate in your patient's care. Please feel free to contact me with any questions or concerns. Discharge destination: Inpatient rehab Total amount of time spent coordinating this discharge: 33 minutes Resuscitation Status: 10/09/20 02:34 Resuscitation Status Routine Resuscitation Status: FULL: Full Resuscitation - Labs Lab Results: 10/15/20 05:24 10/15/20 05:24 Abnormal Lab Results - Last 48 hrs 10/14/20 05:24: Sodium 133 L, Chloride 94 L, BUN 23 H 10/14/20 06:45: RBC 3.63 L, Hgb 11.3 L, Hct 35.4 L, MCH 31.1 H, MCHC 31.9 L, Lymphocytes % 19.7 L, Monocytes % 10.3 H, Lymphocytes # 1.1 L, Monocytes # 0.6 H 10/15/20 05:24: Potassium 3.0 L, Chloride 92 L, Carbon Dioxide 35 H, BUN 25 H, Creatinine 1.11 H 10/15/20 05:24: RBC 3.58 L, Hgb 11.2 L, Hct 34.8 L, MCH 31.2 H, Monocytes % 10.6 H, Monocytes # 0.6 H Microbiology - Entire Visit 10/08/20 22:37 Urine Straight Catheter Urine Culture - Final NO GROWTH AT 36 HOURS - Physical Exam Vitals: Vital Signs (12 hours) Temp Pulse Resp BP Pulse Ox 10/15/20 08:05 97.8 F 93 16 112/71 97 Weight Weight 242 lb 2 oz Physical Exam: The patient was seen and examined on the day of discharge. Patient denies chest pain or shortness of breath. Vital signs are stable. S1 and S2 are heard. Lungs are clear to auscultation bilaterally. Plan - Discharge Medications Home Medications: Medication Instructions Recorded Confirmed Type Albuterol Sulfate [Proair HFA] 2 puff PO Q4HR PRN 04/06/18 10/09/20 History Amitriptyline HCl 200 mg PO HS 04/06/18 10/09/20 History Benzonatate [Tessalon] 100 mg PO TID PRN 04/06/18 10/09/20 History Buprenorphine HCl/Naloxone HCl 1 tablet SL Q12HR PRN 04/06/18 10/09/20 History [Buprenorphn-Naloxn 2-0.5 mg Sl] Ipratropium/Albuterol Sulfate 3 ml NEB QID 04/06/18 10/09/20 History [DuoNeb] Fluticasone/Umeclidin/Vilanter 1 puff IH DAILY 06/30/18 10/09/20 History [Trelegy Ellipta 100-62.5-25] Furosemide [Lasix] 80 mg PO DAILY 06/30/18 10/09/20 History Potassium Chloride [K-Dur] 40 meq PO DAILY 06/30/18 10/09/20 History predniSONE 20 mg PO DAILY 06/30/18 10/09/20 History tiZANidine HCl [Zanaflex] 4 mg PO Q8HR PRN 10/21/19 10/09/20 History Apixaban [Eliquis] 5 mg PO BID #60 tab 10/25/19 10/09/20 Rx Dronedarone HCl [Multaq] 400 mg PO BID-WM #60 tab 10/25/19 10/09/20 Rx Digoxin [Lanoxin] 1 tab PO DAILY 11/24/19 10/09/20 History Metolazone [Zaroxolyn] 1 tab PO ASDIR 11/24/19 10/09/20 History Allergies: No Known Allergies Allergy (Verified 01/15/20 08:40) - Follow up Plan Referrals: Unknown,Unknown [Primary Care Provider] - Disposition: HOME
[2020-10-15 19:55] VITALS: BP 115/70
--- NOTE | 2020-10-18 12:57 | PQF ---
CLINICAL DOCUMENTATION CLARIFICATION FORM: Dear : Dakota Pathak MD Date / Time: 10/18/2020 Please exercise your independent, professional judgment in responding to the clarification form. Clinical indicators are provided on the bottom of this form for your review Please check appropriate box(es): [ x ] Traumatic Rhabdomyolysis [ ] Non - traumatic Rhabdomyolysis [ ] Other diagnosis (Please specify if any) [ ] Unable to determine Physician Signature: Date/Time: For continuity of documentation, please document condition throughout progress notes and discharge summary. Thank You To be completed by CDI/Coding staff for physician review: Present Clinical Indicators - Signs / Symptoms / Labs Results and Location in Medical Record [x] Rhabdomyolysis - presume due to being on floor for prolonged period of time H&P on 10/09 [x] Acute renal failure possible related to Rhabdomyolysis or dehydration after being on floor H&P on 10/09 [x] She has fallen several times before, & was on ground for as long as 2 days H&P on 10/09 [ ] Present Risk Factors Results and Location in Medical Record [x] Weakness, malaise H&P on 10/09 [x] Fall H&P on 10/09 Present Treatments Results and Location in Medical Record [x] Electrolyte replacement protoc Medication on 10/09 [x] Sodium chloride 1,000 ml Medication on 10/09 [ ] [ ] CDS/Swift Tender Signature: EDWINA Phone #: Date/Time: 10/18/2020 This is a permanent part of the Medical Record [facility]
== END 2020-10-15 15:48 | DRG 564 ==
LOC: ERS 15:00 → ERHOLD 23:23 → T4-B 10-09 16:15
PROVIDERS: ADMIT Internal Medicine; ATTEND Internal Medicine
DX: T79.6XXA Traumatic ischemia of muscle, initial encounter (principal); G93.41 Metabolic encephalopathy; N17.9 Acute kidney failure, unspecified; E87.1 Hypo-osmolality and hyponatremia; R29.6 Repeated falls; I48.91 Unspecified atrial fibrillation; J44.9 Chronic obstructive pulmonary disease, unspecified; R77.8 Other specified abnormalities of plasma proteins; E66.9 Obesity, unspecified; E83.42 Hypomagnesemia; E87.6 Hypokalemia; Z90.49 Acquired absence of other specified parts of digestive tract; Z79.899 Other long term (current) drug therapy; Z79.01 Long term (current) use of anticoagulants; Z79.51 Long term (current) use of inhaled steroids; Z68.39 Body mass index [BMI] 39.0-39.9, adult; E16.2 Hypoglycemia, unspecified; R53.81 Other malaise; Z20.828 Contact with and (suspected) exposure to other viral communicable diseases
CPT/HCPCS: 36415; 51701; 71045; 72170; 74176; 80048; 80053; 80202; 81003; 81015; 82550; 82553; 83735; 84484; 85025; 87086; 87635; 90471; 90662; 93005; 94640; 96365; 96375; G0008; J0696; J1885; J2270; J3370; J3475; J3490; J7030; J7050; J7620; U0003

== ENCOUNTER 2020-10-29 22:25 | Emergency (ER) | payer OTHER | END 2020-10-29 23:33 | disposition home or self-care (01) | LOC: ERS 22:25 | DX: R53.1 Weakness (principal); J44.9 Chronic obstructive pulmonary disease, unspecified; I48.91 Unspecified atrial fibrillation; Z79.51 Long term (current) use of inhaled steroids; Z79.899 Other long term (current) drug therapy; Z79.01 Long term (current) use of anticoagulants | CPT/HCPCS: 99281 ==

== ENCOUNTER 2021-04-01 09:53 | Outpatient (CLI) | payer MEDICARE | END 2021-04-01 09:54 | disposition home or self-care (01) | LOC: BICRAD 09:53 | PROVIDERS: ATTEND Internal Medicine Critical Care Medicine | DX: R06.00 Dyspnea, unspecified (principal); I51.7 Cardiomegaly; R91.8 Other nonspecific abnormal finding of lung field; J98.11 Atelectasis; J98.4 Other disorders of lung | CPT/HCPCS: 71046 ==